=== PATIENT | female | born 1995 ===

== ENCOUNTER → 2021-05-20 11:07 | Outpatient (REF) | payer MEDICAID, SELFPAY ==
--- NOTE | ~2021-05-20 | XR_ITS ---
EXAMINATION: XR CHEST CLINICAL INFORMATION: Preprocedural cardiovascular exam COMPARISON: None TECHNIQUE: 2 views of the chest were obtained. FINDINGS: Lungs are clear. No focal consolidation or mass. Normal pulmonary vascularity. No pleural effusion or pneumothorax. Normal heart size. No acute osseous abnormality. XR/XR chest 2V IMPRESSION: Clear lungs.
--- NOTE | 2021-05-20 11:52 | ECG_ITS ---
Test Reason : PRE OP Blood Pressure : / mmHG Vent. Rate : 055 BPM Atrial Rate : 055 BPM P-R Int : 146 ms QRS Dur : 086 ms QT Int : 406 ms P-R-T Axes : 038 042 024 degrees QTc Int : 388 ms Sinus bradycardia Otherwise normal ECG When compared with ECG of 24-JUL-2018 10:00, No significant change was found Referred By: Betty Rowley Electronically Signed By:DEEDEE PHELAN MD
== END ==
LOC: HO.CARD 11:07
PROVIDERS: PCP Family Medicine; Referring Provider Family Medicine; Visit Provider Family Medicine
DX: Z01.810 Encounter for preprocedural cardiovascular examination (principal)
CPT/HCPCS: 71046; 93005

== ENCOUNTER 2022-06-16 10:54 | Outpatient (REF) | payer MEDICAID, SELFPAY ==
--- NOTE | ~2022-06-16 | US_ITS ---
EXAMINATION: US VENOUS ULTRASOUND WITH DOPPLER LOWER EXTREMITY, LEFT CLINICAL INFORMATION: Left lower extremity edema and pain. COMPARISON: None TECHNIQUE: Ultrasound of the deep veins is performed from the hip to the calf with compression sonography and color and pulse Doppler assessment. Spectral analysis with color-flow imaging is performed. FINDINGS: There is normal venous compression and respiratory variation and augmented flow. The visualized common femoral vein, superficial femoral vein, profunda femoral vein, popliteal vein, and the trifurcation region shows no evidence of deep venous thrombosis. There is no significant popliteal fossa cyst. If the patient's symptoms persist, followup ultrasound in 5 days 7 days might be of value to exclude proximal propagation from a non-visualized calf vein. US/US venous duplex LE IMPRESSION: No DVT demonstrated in the left lower extremity.
== END 2022-06-16 10:55 | disposition home or self-care (01) ==
LOC: HO.US 10:54
PROVIDERS: Visit Provider Emergency Medicine
DX: M79.662 Pain in left lower leg (principal)
CPT/HCPCS: 93971

== ENCOUNTER 2023-08-09 08:15 | Emergency (ER) | payer MEDICAID, SELFPAY ==
--- NOTE | ~2023-08-09 | US_ITS ---
EXAMINATION: US OBSTETRICAL ULTRASOUND CLINICAL INFORMATION: Lower abdominal pain in a patient was a positive test COMPARISON: None available. LMP: 07/08/2023. Gestational age by maternal dates is 5 weeks 3 days. Estimated date of delivery by maternal dates is 07/08/2024. TECHNIQUE: Transabdominal and transvaginal pelvic ultrasound FINDINGS: There is gestational sac identified in the uterine fundus measured 0.34 x 0.6 x 0.28 cm with the mean sac diameter 0.39 cm, corresponding to 4 weeks 6 days of gestation. No pole or yolk sac identified on the current study. MATERNAL ADNEXA: The right maternal ovary measures 3.4 x 2.0 x 2.4 cm corpus luteum cyst measured 2.1 x 1.6 x 1.7 cm The left maternal ovary measures 2.9 x 1.4 x 1.2 cm There is no significant maternal adnexal mass. There is small amount of fluid in cul-de-sac.. US/US OB <= 14 weeks fetus IMPRESSION: 1. Single intrauterine gestation with ultrasound gestational age of 4 weeks 6 days +/- 4 days based on gestational sac measurements on. There is mild pelvic ascites. Correlate with hCG level and follow-up by ultrasound based on the clinical impression
[2023-08-09 08:17] VITALS: BP 115/69; PULSE 78; RESP 18; TEMP 36.5; O2SAT 100; BMI 19.9
[2023-08-09 08:53] LABS: MANUAL DIFF FLAG NO
[2023-08-09 08:55] LABS: UPreg QC Valid YES; Urine Pregnancy POSITIVE (NEGATIVE)
[2023-08-09 08:56] LABS: Appearance Urine Clear; Color Urine Yellow; Glucose Urine UA Negative (Negative); Leukocyte Esterase Urine Negative (Negative); Nitrite Urine Negative (Negative); PH 5.5 (5.0-9.0); Specific Gravity - Urine 1.025 (1.005-1.025); Urine Blood Negative (Negative); Urine Ketones Negative (Negative); Urine Protein Negative (Neg-Trace)
[2023-08-09 08:57] LABS: Basophils Percent Auto 0.3 % (0-2); Eosinophils Absolute Auto 0.1 X10*3/uL (0.0-0.4); Eosinophils Percent Auto 1.1 % (0-4); Hematocrit 39.5 % (37.0-47.0); Hemoglobin 13.1 g/dl (12.0-16.0); Imm Gran Abs Auto 0.01 X10*3/uL (0.00-0.03); Imm Gran Pct Auto 0.1 % (0.0-0.4); Lymphocytes Absolute Auto 1.4 X10*3/uL (1.2-4.9); Mean Corpuscular HGB Conc 33.2 g/dl (31.0-35.0); Mean Corpuscular Hemoglobin 26.8 pg (27.0-33.0); Mean Corpuscular Volume 80.8 fL (80.0-98.0); Mean Platelet Volume 11.4 fL (9.4-12.3); Monocytes Absolute Auto 0.6 X10*3/uL (0.1-1.2); Monocytes Percent Auto 7.2 % (2-11); Neutrophils Absolute Auto 5.8 x10*3/uL (2.0-8.3); Neutrophils Percent Auto 73.3 % (45-73); Platelet Count 217 X10*3/uL (160-400); Red Blood Count 4.89 X10*6/uL (4.20-5.50); Red Cell Distribution Width 12.9 % (11.0-16.0); White Blood Count 7.9 X10*3/uL (4.8-10.8)
[2023-08-09 09:07] VITALS: BP 119/76; PULSE 76; RESP 16; TEMP 36.8; O2SAT 100
--- NOTE | 2023-08-09 09:09 | ED_ITS ---
HPI - Abdominal Pain General Chief Complaint: Abdominal Pain Stated Complaint: Abd pain Time Seen by Provider: 08/09/23 09:08 Source: patient, RN notes reviewed and old records reviewed Mode of arrival: ambulatory History of Present Illness HPI narrative: 28-year-old female , Senegalese-speaking, presenting to the ED complaining of LLQ/ suprapubic abdominal pain and low back pain x4 days. Reports pain worsens ambulation and palpation. LMP /. denies fever/ chills, nausea/ vomiting, flank pain, dysuria/ hematuria, vaginal bleeding /discharge MD elicited complaint: abdominal pain Related Data Allergies Allergy/AdvReac Type Severity Reaction Status Date / Time No Known Allergies Allergy Verified 08/09/23 08:20 Review of Systems Review of Systems Constitutional: No Fever, No Chills, No Night Sweats, No Fatigue, No Malaise ENT/Mouth: No Ear Pain, No Nasal Congestion, No sore throat, No Rhinorrhea, No Swallowing Difficulty Eyes: No Eye Pain, No Swelling, No Redness, No Vision Changes Cardiovascular: No Chest Pain, No SOB, o Palpitations Respiratory: No Cough, No Sputum, No Dyspnea Gastrointestinal: No Nausea, No Vomiting, No Diarrhea, No Constipation, +Abdominal pain Genitourinary: No irregular bleeding, No Dysuria, No Urinary Frequency, No Hematuria, No Urinary Incontinence/retention, No Flank Pain Musculoskeletal: +low back pain, No Myalgias, No Joint Swelling Skin: No Skin Lesions, No rash Neuro: No Weakness, No Numbness, No Paresthesias, No Loss of Consciousness, No Dizziness, No Headache Yes all other systems are reviewed and are negative Constitutional: Reports as per [facility] Past Medical History Attestation statement: The following information was validated with the patient. Source: old records reviewed Social History Social History Alcohol intake: never Smoked in Last 30 Days: No Use of substances other than those prescribed or required for medical reasons: No Advance Directives: No Patient : Yes Physical Exam ED Vital Signs: Vital Signs - 24 hr 08/09/23 08:17 08/09/23 09:07 08/09/23 11:12 Temperature 97.7 F 98.2 F 98.6 F Pulse Rate 78 76 68 Respiratory Rate 18 16 15 Blood Pressure 115/69 119/76 104/69 Pulse Oximetry 100 100 99 Oxygen Delivery Method Room Air Room Air Room Air BMI result Body Mass Index 19.9 Const General: cooperative, healthy appearing and no acute distress Orientation/consciousness: patient oriented x3 Limitations: no limitations HENMT Head: Yes normal to inspection and Yes atraumatic Ears: hearing grossly normal bilaterally General nose exam: Normal external nose present Face and sinus: Yes normal facial exam Eyes General: appearance normal, both eyes and all related structures EOM: EOMs intact bilaterally Neck Neck: Yes normal visual inspection and Yes no meningeal signs Resp Effort & Inspection: normal respiratory effort and no respiratory distress Cardio Rate: regular rate Heart sounds: S1 normal heart sound present and S2 normal heart sound present GI Inspection: Yes normal to inspection Palpation (GI): Soft to palpation, Tenderness to palpation present (GI) suprapubicly (> Left), no guarding and not rigid General: Yes no CVA tenderness Back/Spine/Pelvis Other: No midline cervical/thoracic/lumbar spinous tenderness/step-off or deformity. + mild left lower lumbar MSK ttp Back: no CVA tenderness Skin Rashes: no rashes Wounds: no wounds Neuro General: patient oriented x3, tone normal and no meningeal signs Cranial nerves: Yes CN's II-XII intact bilaterally Gait exam (Neuro): Normal gait present Extrem General: Yes normal to inspection Course Course Course Narrative: -919-- urine positive > additional labs including beta hCG added, will obtain pelvic ultrasound - no leukocytosis - HCG 2856 c/w +/-5 weeks 1304--US OB <= 14 weeks fetus IMPRESSION: 1. Single intrauterine gestation with ultrasound gestational age of 4 weeks 6 days +/- 4 days based on gestational sac measurements on. There is mild pelvic ascites. Correlate with hCG level and follow-up by ultrasound based on the clinical impression Results discussed with patient including worrisome signs and symptoms and strict return precautions including increasing/ unremitting pain, vaginal bleeding / discharge, persistent nausea/vomiting, and when to return to the emergency department. They verbalized understanding and feel safe for discharge at this time. Medical Decision Making Medical Decision Making [facility] Narrative: 28-year-old female , [place]egalese-speaking, presenting to the ED complaining of LLQ/ suprapubic abdominal pain and low back pain x4 days. on exam vital signs stable, NAD, nontoxic appearing, abdomen soft with suprapubic > left and mild left lower lumbar MSK tenderness, no rebound or guarding. Left hip nontender with full range of motion intact. No CVAT. Concern for UTI vs /ectopic vs ovarian torsion vs MSK pain/strain. Renal stone / pyelo on differential however lower. Lower suspicion for diverticulitis/appendicitis plan: Labs, UA, , imaging, re-evaluation Please refer to course for remaining clinical decision making, interpretation of labs/imaging results, and discussions with consultants and/or family members. Differential Diagnosis Differential Diagnoses: The differential diagnosis associated with the presentation includes As above Admission/Observation Consideration of admission/observation: Escalation of care including admission/observation considered Lab Data MDM Lab Attestation statement: I reviewed the patient's lab results. 08/09/23 08:46 08/09/23 08:46 Labs: Lab Results 08/09/23 Range/Units 08:46 WBC 7.9 (4.8-10.8) X10*3/uL RBC 4.89 (4.20-5.50) X10*6/uL Hgb 13.1 (12.0-16.0) g/dl Hct 39.5 (37.0-47.0) % MCV 80.8 (80.0-98.0) fL MCH 26.8 L (27.0-33.0) pg MCHC 33.2 (31.0-35.0) g/dl RDW 12.9 (11.0-16.0) % Plt Count 217 (160-400) X10*3/uL MPV 11.4 (9.4-12.3) fL Immature Gran % (Auto) 0.1 (0.0-0.4) % Neut % (Auto) 73.3 H (45-73) % Lymph % (Auto) 18.0 L (20-40) % [place] % (Auto) 7.2 (2-11) % Eos % (Auto) 1.1 (0-4) % Baso % (Auto) 0.3 (0-2) % Lymph # (Auto) 1.4 (1.2-4.9) X10*3/uL [place] # (Auto) 0.6 (0.1-1.2) X10*3/uL Eos # (Auto) 0.1 (0.0-0.4) X10*3/uL Baso # (Auto) 0.0 (0.0-0.2) X10*3/uL Abs Immat Gran (auto) 0.01 (0.00-0.03) X10*3/uL Absolute Neuts (auto) 5.8 (2.0-8.3) x10*3/uL Absolute Nucleated RBC 0.000 (0.0-0.012) X10*3/uL Nucleated RBC % (auto) 0.0 (0.0-0.2) /100WBC Sodium 137 (135-145) mmol/L Potassium 3.7 (3.3-5.1) mmol/L Chloride 109 H (96-108) mmol/L Carbon Dioxide 22 (22-29) mmol/L Anion Gap 10 L (12-20) BUN 10 (9-16) mg/dL Creatinine 0.91 (0.5-1.4) mg/dL Estim Creat Clear Calc 76.4 Estimated GFR > 60 Random Glucose 76 (60-115) mg/dL Calcium 9.3 (8.4-10.2) mg/dL Magnesium 1.9 (1.6-2.6) mg/dL Total Bilirubin 0.5 (0.0-1.0) mg/dL Direct Bilirubin 0.2 (0.0-0.5) mg/dL AST 14 (5-31) U/L ALT 5 (0-31) U/L Alkaline Phosphatase 43 (39-117) U/L Total Protein 7.8 (6.5-8.0) g/dL Albumin 4.1 (3.5-5.0) g/dL Lipase 23 (8-78) U/L Beta HCG, Quant 2856 mIU/mL Urine Color Yellow Urine Appearance Clear Urine pH 5.5 (5.0-9.0) Ur Specific [place] 1.025 (1.005-1.025) Urine Protein Negative (Neg-Trace) mg/dL Urine Glucose (UA) Negative (Negative) mg/dL Urine Ketones Negative (Negative) mg/dL Urine Blood Negative (Negative) Urine Nitrite Negative (Negative) Ur Leukocyte Esterase Negative (Negative) Urine Test POSITIVE H (NEGATIVE) Radiology Impression Discussion of test interpretation with radiology: I have reviewed the radiologist's reading. External Record Review External record reviewed: Inpatient record, Office record, Outpatient record, Prior outpatient labs, Prior outpatient radiology, Primary care record and Outside ED record Tests considered The following testing was considered but not selected: As above Prescription Management I considered prescription management with: Pain Medication Discharge Plan Discharge Clinical Impression: Patient Disposition: Home, Self-Care
[2023-08-09 09:15] LABS: Anion Gap 10 (12-20); Blood Urea Nitrogen 10 mg/dL (9-16); Calcium 9.3 mg/dL (8.4-10.2); Carbon Dioxide 22 mmol/L (22-29); Chloride 109 mmol/L (96-108); Creatinine Clr Calc Pharmacy 76.4; Estimated Glomerular Filt Rate > 60; Glucose Random 76 mg/dL (60-115); Potassium 3.7 mmol/L (3.3-5.1); Sodium 137 mmol/L (135-145)
--- NOTE | 2023-08-09 09:22 | PC.NURSE ---
a&ox3, vss. pt comes in today d/t LLQ pain that radiates to left flank area. pt states that symptoms began 4 days ago. provider and ethanol operator bedside with patient notifying pt that blood work displays that she is currently . pt verbalizes that she was unaware. pt denies any urinary symptoms but states that she has had some nausea recently and had chills last night. abdomen tender upon palpation. normoactive bs noted upon auscultation. pt denies fever and is currently afebrile [place]. resting comfortably in no apparent distress. respirations even and unlabored. call vigil placed within reach.
[2023-08-09 09:47] LABS: Alanine Aminotransferase 5 U/L (0-31); Albumin Level 4.1 g/dL (3.5-5.0); Alkaline Phosphatase 43 U/L (39-117); Aspartate Amino Transferase 14 U/L (5-31); Bilirubin Direct 0.2 mg/dL (0.0-0.5); Bilirubin Total 0.5 mg/dL (0.0-1.0); Lipase 23 U/L (8-78); Magnesium 1.9 mg/dL (1.6-2.6); Total Protein 7.8 g/dL (6.5-8.0)
[2023-08-09 09:51] LABS: HCG Quantitative 2856 mIU/mL
[2023-08-09 11:12] VITALS: BP 104/69; PULSE 68; RESP 15; TEMP 37; O2SAT 99
== END 2023-08-09 13:23 | disposition home or self-care (01) ==
PROVIDERS: Physician Assistant; Emergency Provider Emergency Medicine; PCP Family Medicine
DX: O26.91 Pregnancy related conditions, unspecified, first trimester (principal); Z79.899 Other long term (current) drug therapy
CPT/HCPCS: 36415; 76801; 80048; 80076; 81003; 81025; 83690; 83735; 84702; 85025; 99284

== ENCOUNTER 2023-08-19 07:57 | Emergency (ER) | payer MEDICAID, SELFPAY ==
[2023-08-19 07:59] VITALS: BP 114/75; PULSE 83; RESP 16; TEMP 36.3; O2SAT 100; BMI 20.7
--- NOTE | 2023-08-19 08:11 | ED_ITS ---
HPI - General Adult General Chief complaint: Nausea/Vomiting/Diarrhea Stated complaint: nausea Time Seen by Provider: 08/19/23 08:09 Source: patient Mode of arrival: ambulatory Limitations: no limitations History of Present Illness HPI narrative: Patient is a 28-year-old female currently a approximately 6 weeks , LMP 07/02/2023 presenting to the emergency department with complaint of nausea and vomiting since yesterday. She also complains of epigastric abdominal pain. She denies any diarrhea or constipation. Reports that she has had vomiting with all p.o. intake. Sees [facility] [employer]. Has had an OB ultrasound confirming intrauterine . Denies any cramping or vaginal bleeding. Denies fevers. MD complaint: nausea and vomiting Onset (ago): day(s) Location: abdomen Radiation: non-radiation Severity: mild Quality: burning Pain Consistency: constant Relieving factors: none Exacerbating factors: other (vomiting) Associated symptoms: denies other symptoms Treatments prior to arrival: none Related Data Previous Rx's Medication Instructions Recorded ondansetron 4 mg disintegrating 4 mg PO Q8H PRN nausea and 08/19/23 tablet vomiting #10 tabs Allergies Allergy/AdvReac Type Severity Reaction Status Date / Time No Known Allergies Allergy Verified 08/09/23 08:20 Review of Systems 2 Review of Systems: As per HPI. Yes all other systems are reviewed and are negative Constitutional: Constitutional: Reports as per [facility] Social History Social History Alcohol intake: never Smoked in Last 30 Days: No Use of substances other than those prescribed or required for medical reasons: No Advance Directives: No Advance Directives Information Provided: No Physical Exam ED Vital Signs: Vital Signs - 24 hr 08/19/23 07:59 08/19/23 10:04 Temperature 97.4 F Pulse Rate 83 69 Respiratory Rate 16 18 Blood Pressure 114/75 97/61 Pulse Oximetry 100 100 Oxygen Delivery Method Room Air Room Air BMI result Body Mass Index 20.7 Vital signs have been reviewed and appear to be correct. Blood pressure normal. Heart rate normal. Respiratory rate normal. Temperature normal. Oxygen saturation normal. Const General: cooperative, healthy appearing and no acute distress Orientation/consciousness: oriented to person, oriented to place, oriented to time and patient oriented x3 Limitations: no limitations HENMT Head: Yes normocephalic and Yes atraumatic Ears: external ears normal General nose exam: Normal external nose present Face and sinus: Yes face symmetric Mouth: oropharynx normal and moist mucous membranes Throat: Yes uvula midline Eyes Pupils: Equal, round and reactive pupils present Neck Neck: Yes normal visual inspection and Yes supple Resp Effort & Inspection: normal respiratory effort and able to speak in complete sentences Auscultation: clear to auscultation bilaterally Cardio Rate: regular rate Rhythm: regular rhythm Heart sounds: S1 normal heart sound present and S2 normal heart sound present GI Inspection: Yes normal to inspection Palpation (GI): Soft to palpation and Tenderness to palpation present (GI) (mild epigastric tenderness) in the epigastrum Auscultation: normoactive bowel sounds General: Yes no CVA tenderness Back/Spine/Pelvis Back: no CVA tenderness Skin General skin exam: elasticity normal and turgor normal Neuro General: oriented to person, oriented to place, oriented to time, patient oriented x3, moves all extremities, no focal motor deficits and CN's II-XI intact bilaterally Cranial nerves: Yes Equal, round and reactive pupils present Cognition (Neuro): normal cognition Extrem General: Yes full ROM, Yes no pedal edema and Yes no calf tenderness Psych Mental Status: mental status grossly normal Affect: normal affect Thought process: Normal thought process present Medications Administered Discontinued Medications Generic Name Dose Route Start Last Admin Trade Name Freq PRN Reason Stop Dose Admin Diphenhydramine HCl 25 mg 08/19/23 09:58 08/19/23 10:07 Diphenhydramine Hcl 50 Mg/Ml Vial IVPUSH 08/19/23 09:59 25 mg ONCE ONE Administration Sodium Chloride 1,000 mls @ 999 mls/hr 08/19/23 08:30 08/19/23 10:06 Ns IV 08/19/23 09:30 Infused .Q1H1M ADRIANA Infusion Sodium Chloride 500 mls @ 999 mls/hr 08/19/23 10:00 08/19/23 11:21 Ns IV 08/19/23 10:30 Infused .Q31M ADRIANA Infusion Metoclopramide HCl 10 mg 08/19/23 09:50 08/19/23 10:06 Metoclopramide Hcl 10 Mg/2 Ml Vial IVPUSH 08/19/23 09:51 10 mg ONCE ONE Administration Ondansetron HCl 4 mg 08/19/23 08:16 08/19/23 08:28 Ondansetron Hcl 4 Mg/2 Ml Vial IVPUSH 08/19/23 08:17 4 mg ONCE ONE Administration Medical Decision Making Medical Decision Making [facility] Narrative: Patient is a 28-year-old female currently a approximately 6 weeks , LMP 07/02/2023 presenting to the emergency department with complaint of nausea and vomiting since yesterday. On exam patient is awake, A+Ox3, VS WNL, afebrile, normal neurological exam without focal deficits, physical exam findings as above. No vomiting witnessed during assessment, however, patient noted to be spitting into an emesis bag. Given reported symptoms and physical exam findings, initial differential includes nausea and vomiting of , hyperemesis gravidarum, electrolye abnormality. Will check UA, order IV fluids and zofran. Labs notable for mild leukocytosis consistent with prior elevations, no anemia, no electrolyte abnormalities. UA not yet resulted. Patient complains of ongoing nausea and vomiting despite IV fluids and Zofran. Will order metoclopramide and additional fluids. Patient unable to provide urine specimen while in the ED. Reports that symptoms have significantly improved after receiving metoclopramide and diphenhydramine. Has been able to tolerate fluids p.o.. Patient feels comfortable with discharge home and I feel patient is stable for discharge at this time. Will sign prescription for Zofran to pharmacy. Return precautions discussed at bedside. Instructed patient to contact OBGYN for follow-up regarding her symptoms and ED visit today. Patient verbalized understanding of and agreement with plan. Differential Diagnosis Differential Diagnoses: The differential diagnosis associated with the presentation includes As per [facility]. Admission/Observation Consideration of admission/observation: Escalation of care including admission/observation considered Lab Data [facility] Lab Attestation statement: I reviewed the patient's lab results. As per [facility] 08/19/23 08:20 08/19/23 08:20 Labs: Lab Results 08/19/23 Range/Units 08:20 WBC 12.1 H (4.8-10.8) X10*3/uL RBC 4.62 (4.20-5.50) X10*6/uL Hgb 12.4 (12.0-16.0) g/dl Hct 37.1 (37.0-47.0) % MCV 80.3 (80.0-98.0) fL MCH 26.8 L (27.0-33.0) pg MCHC 33.4 (31.0-35.0) g/dl RDW 13.0 (11.0-16.0) % Plt Count 219 (160-400) X10*3/uL MPV 11.5 (9.4-12.3) fL Immature Gran % (Auto) 0.4 (0.0-0.4) % Neut % (Auto) 85.6 H (45-73) % Lymph % (Auto) 9.5 L (20-40) % [place] % (Auto) 4.2 (2-11) % Eos % (Auto) 0.2 (0-4) % Baso % (Auto) 0.1 (0-2) % Lymph # (Auto) 1.2 (1.2-4.9) X10*3/uL [place] # (Auto) 0.5 (0.1-1.2) X10*3/uL Eos # (Auto) 0.0 (0.0-0.4) X10*3/uL Baso # (Auto) 0.0 (0.0-0.2) X10*3/uL Abs Immat Gran (auto) 0.05 H (0.00-0.03) X10*3/uL Absolute Neuts (auto) 10.4 H (2.0-8.3) x10*3/uL Absolute Nucleated RBC 0.000 (0.0-0.012) X10*3/uL Nucleated RBC % (auto) 0.0 (0.0-0.2) /100WBC Sodium 139 (135-145) mmol/L Potassium 3.5 (3.3-5.1) mmol/L Chloride 108 (96-108) mmol/L Carbon Dioxide 23 (22-29) mmol/L Anion Gap 12 (12-20) BUN 10 (9-16) mg/dL Creatinine 0.77 (0.5-1.4) mg/dL Estim Creat Clear Calc 93.8 Estimated GFR > 60 Random Glucose 86 (60-115) mg/dL Calcium 9.4 (8.4-10.2) mg/dL Total Bilirubin 0.7 (0.0-1.0) mg/dL AST 14 (5-31) U/L ALT 6 (0-31) U/L Alkaline Phosphatase 40 (39-117) U/L Total Protein 7.8 (6.5-8.0) g/dL Albumin 4.1 (3.5-5.0) g/dL Beta HCG, Quant 92162 mIU/mL External Record Review External record reviewed: Inpatient record, Office record and Outpatient record Prescription Management I considered prescription management with: Other Discharge Plan Discharge Clinical Impression: Nausea and vomiting during Patient Disposition: Home, Self-Care Instructions: Nausea and Vomiting in (ED) Additional Instructions: You were evaluated in the emergency department today for epigastric pain, nausea, and vomiting which is most likely due to . Your symptoms improved with medication in the ED. you are being prescribed ondansetron which you may use up to every 8 hours as needed for nausea. Please follow up with your [employer] within two days. Return to the emergency department if you experience shortness of breath, worsening or uncontrolled abdominal pain, vaginal bleeding, chest pain, light headedness, fainting, persistent nausea and vomiting, bloody vomit or stools, black, tarry stools, or any other concerning symptoms. Prescriptions: New ondansetron 4 mg tablet,disintegrating 4 mg PO Q8H PRN (Reason: nausea and vomiting) Qty: 10 0RF
--- NOTE | 2023-08-19 08:15 | PC.NURSE ---
pt a&ox3. respirations even and unlabored. pt reports nausea and vomiting since yesterday at 5am, more than 15 times. pt denies blood in vomit. denies pain. pt reports being 6 weeks with her last period being july 02. pt abdomen soft non tender to touch with active bowel sounds in all 4 quadrants. pt denies chest pain and SOB. provider at bedside discussing pt care.
[2023-08-19] MEDS: 0.9 % Sodium Chloride 1,000 ML 999 ML IV (08:22)
[2023-08-19 08:27] LABS: MANUAL DIFF FLAG NO
[2023-08-19] MEDS: ondansetron HCL 4 MG/2 ML VIAL IVPUSH (08:28)
[2023-08-19 08:29] LABS: Basophils Percent Auto 0.1 % (0-2); Eosinophils Percent Auto 0.2 % (0-4); Hematocrit 37.1 % (37.0-47.0); Hemoglobin 12.4 g/dl (12.0-16.0); Imm Gran Abs Auto 0.05 X10*3/uL (0.00-0.03); Imm Gran Pct Auto 0.4 % (0.0-0.4); Lymphocytes Absolute Auto 1.2 X10*3/uL (1.2-4.9); Lymphocytes Percent Auto 9.5 % (20-40); Mean Corpuscular HGB Conc 33.4 g/dl (31.0-35.0); Mean Corpuscular Hemoglobin 26.8 pg (27.0-33.0); Mean Corpuscular Volume 80.3 fL (80.0-98.0); Mean Platelet Volume 11.5 fL (9.4-12.3); Monocytes Absolute Auto 0.5 X10*3/uL (0.1-1.2); Monocytes Percent Auto 4.2 % (2-11); Neutrophils Absolute Auto 10.4 x10*3/uL (2.0-8.3); Neutrophils Percent Auto 85.6 % (45-73); Platelet Count 219 X10*3/uL (160-400); Red Blood Count 4.62 X10*6/uL (4.20-5.50); White Blood Count 12.1 X10*3/uL (4.8-10.8)
[2023-08-19 08:49] LABS: Alanine Aminotransferase 6 U/L (0-31); Albumin Level 4.1 g/dL (3.5-5.0); Alkaline Phosphatase 40 U/L (39-117); Anion Gap 12 (12-20); Aspartate Amino Transferase 14 U/L (5-31); Bilirubin Total 0.7 mg/dL (0.0-1.0); Blood Urea Nitrogen 10 mg/dL (9-16); Calcium 9.4 mg/dL (8.4-10.2); Carbon Dioxide 23 mmol/L (22-29); Chloride 108 mmol/L (96-108); Creatinine Clr Calc Pharmacy 93.8; Estimated Glomerular Filt Rate > 60; Glucose Random 86 mg/dL (60-115); Potassium 3.5 mmol/L (3.3-5.1); Sodium 139 mmol/L (135-145); Total Protein 7.8 g/dL (6.5-8.0)
[2023-08-19 10:04] VITALS: BP 97/61; PULSE 69; RESP 18; O2SAT 100
[2023-08-19] MEDS: 0.9 % Sodium Chloride 500 ML 999 ML IV (10:06)
[2023-08-19] MEDS: Metoclopramide HCl 10 MG/2 ML VIAL IVPUSH (10:06)
[2023-08-19] MEDS: diphenhydrAMINE HCL 50 MG/ML VIAL 25 MG IVPUSH (10:07)
--- NOTE | 2023-08-19 10:10 | PC.NURSE ---
pt reports nausea, provider aware. pt medicated per mar. vss.
[2023-08-19 13:09] VITALS: BP 96/50; PULSE 75; RESP 18; O2SAT 99
--- NOTE | 2023-08-19 13:10 | PC.NURSE ---
pt bp 96/50 upon discharge. Cecilia MUELLER aware.
== END 2023-08-19 13:17 | disposition home or self-care (01) ==
PROVIDERS: Registered Nurse Emergency; Emergency Provider Emergency Medicine; PCP Family Medicine
DX: O21.9 Vomiting of pregnancy, unspecified (principal); Z3A.01 Less than 8 weeks gestation of pregnancy
CPT/HCPCS: 36415; 80053; 84702; 85025; 96361; 96374; 96375; 99284; J1200; J2405; J2765

== ENCOUNTER 2023-08-27 12:25 | Emergency (ER) | payer MEDICAID, SELFPAY ==
[2023-08-27 13:09] VITALS: BP 148/86; PULSE 76; RESP 16; TEMP 37.2; O2SAT 98; BMI 19.7
--- NOTE | 2023-08-27 13:09 | ED.NAVMDI ---
HPI - Nausea/Vomiting/Diarrhea General Chief complaint: Nausea/Vomiting/Diarrhea Stated complaint: Vomiting Pain Time Seen by Provider: 08/27/23 15:38 Related Data Previous Rx's Medication Instructions Recorded ondansetron 4 mg disintegrating 4 mg PO Q8H PRN nausea and 08/19/23 tablet vomiting #10 tabs Allergies Allergy/AdvReac Type Severity Reaction Status Date / Time No Known Allergies Allergy Verified 08/09/23 08:20 [facility] Social History Social History Alcohol intake: never Advance Directives: No Advance Directives Information Provided: No Physical Exam Vital Signs: Vital Signs: Last Vital Signs Temp 99 F 08/27/23 13:09 Pulse 76 08/27/23 13:09 Resp 16 08/27/23 13:09 BP 148/86 H 08/27/23 13:09 Pulse Ox 98 08/27/23 13:09 O2 Del Method Room Air 08/27/23 13:09 BMI result Body Mass Index 19.7 Course Course Course Narrative: currently approximately 8 weeks , LMP 07/02/2023 followed by [facility], presenting to the emergency department with complaint of nausea and vomiting. Has had persistent nausea and vomiting he during this , but significantly worsening since yesterday. She has been seen here in the past and received a prescription for Zofran which she states did not relieve her nausea. She has an appointment to see her OB provider 09/03/2023 . Denies vaginal bleeding or discharge. Denies dysuria. When asked about pain she endorses lower ABD pain and left calf pain without swelling. Plan: labs, U/A, US LLE Medical Decision Making Lab Data 08/27/23 14:27 08/27/23 14:27 Labs: Lab Results 08/27/23 Range/Units 14:27 WBC 13.4 H (4.8-10.8) X10*3/uL RBC 5.06 (4.20-5.50) X10*6/uL Hgb 13.5 (12.0-16.0) g/dl Hct 40.8 (37.0-47.0) % MCV 80.6 (80.0-98.0) fL MCH 26.7 L (27.0-33.0) pg MCHC 33.1 (31.0-35.0) g/dl RDW 13.1 (11.0-16.0) % Plt Count 232 (160-400) X10*3/uL MPV 12.0 (9.4-12.3) fL Immature Gran % (Auto) 0.4 (0.0-0.4) % Neut % (Auto) 85.3 H (45-73) % Lymph % (Auto) 9.5 L (20-40) % [place] % (Auto) 4.5 (2-11) % Eos % (Auto) 0.1 (0-4) % Baso % (Auto) 0.2 (0-2) % Lymph # (Auto) 1.3 (1.2-4.9) X10*3/uL [place] # (Auto) 0.6 (0.1-1.2) X10*3/uL Eos # (Auto) 0.0 (0.0-0.4) X10*3/uL Baso # (Auto) 0.0 (0.0-0.2) X10*3/uL Abs Immat Gran (auto) 0.05 H (0.00-0.03) X10*3/uL Absolute Neuts (auto) 11.5 H (2.0-8.3) x10*3/uL Absolute Nucleated RBC 0.000 (0.0-0.012) X10*3/uL Nucleated RBC % (auto) 0.0 (0.0-0.2) /100WBC PT 12.5 (11.1-13.3) SEC INR 1.0 (0.9-1.1) Sodium 138 (135-145) mmol/L Potassium 4.3 D (3.3-5.1) mmol/L Chloride 104 (96-108) mmol/L Carbon Dioxide 22 (22-29) mmol/L Anion Gap 16 (12-20) BUN 11 (9-16) mg/dL Creatinine 0.76 (0.5-1.4) mg/dL Estim Creat Clear Calc 90.7 Estimated GFR > 60 Random Glucose 84 (60-115) mg/dL Calcium 9.9 (8.4-10.2) mg/dL Total Bilirubin 0.7 (0.0-1.0) mg/dL AST 15 (5-31) U/L ALT 9 (0-31) U/L Alkaline Phosphatase 39 (39-117) U/L Total Protein 8.3 H (6.5-8.0) g/dL Albumin 4.3 (3.5-5.0) g/dL Lipase 19 (8-78) U/L Beta HCG, Quant 447203 mIU/mL COVID-19 (PURNIMA) Negative (Negative) COVID-19 Clin Com See Note Discharge Plan Discharge Prescriptions: No Action ondansetron 4 mg tablet,disintegrating 4 mg PO Q8H PRN (Reason: nausea and vomiting) Qty: 10 0RF
--- NOTE | 2023-08-27 15:48 | ED.NAVMDI ---
HPI - Nausea/Vomiting/Diarrhea General Chief complaint: Nausea/Vomiting/Diarrhea Stated complaint: Vomiting Pain Time Seen by Provider: 08/27/23 15:38 Source: patient and family ( mother) Mode of arrival: ambulatory Limitations: no limitations History of Present Illness HPI Narrative: currently approximately 8 weeks , LMP 07/02/2023 followed by Buddy Miranda, presenting to the emergency department with complaint of nausea and vomiting. Has had persistent nausea and vomiting he during this , but significantly worsening since yesterday. She has been seen here in the past and received a prescription for Zofran which she states did not relieve her nausea. patient with history of hyperemesis gravidarum in previous pregnancies and mother also had a history during her . She has an appointment to see her OB provider 09/03/2023 . Denies vaginal bleeding or discharge. Denies dysuria. When asked about pain she endorses lower ABD pain and left calf pain without swelling. Related Data Previous Rx's Medication Instructions Recorded ondansetron 4 mg disintegrating 4 mg PO Q8H PRN nausea and 08/19/23 tablet vomiting #10 tabs metoclopramide HCl 10 mg tablet 10 mg PO Q6H PRN nausea and 08/27/23 (Reglan) vomiting #10 tabs Allergies Allergy/AdvReac Type Severity Reaction Status Date / Time No Known Allergies Allergy Verified 08/09/23 08:20 Review of Systems Review of Systems: All other systems are reviewed and are negative Constitutional: Reports as per HPI and Reports no additional constitutional complaints Eyes: Reports as per HPI and Reports no additional eye complaints Reports system reviewed and no additional complaints, except as documented Cardiovascular: Reports as per HPI and Reports no additional cardiovascular complaints Respiratory: Reports as per HPI and Reports no additional respiratory complaints Gastrointestinal: Reports as per HPI and Reports no additional gastrointestinal complaints Genitourinary: Reports no additional female genitourinary complaints Musculoskeletal: Reports no additional musculoskeletal complaints Skin/Breast: Reports system reviewed and no additional complaints, except as docu Psychiatric: Reports no additional psychiatric complaints Endocrine: Reports no additional endocrine complaints Hematologic/Lymphatic: Reports no additional hematologic/lymphatic complaints Allergic/Immunologic: Reports no additional allergic/immunologic complaints Reports system reviewed and no additional complaints, except as documented and Reports Abnormal speech present PMFSH Social History Social History Alcohol intake: never Smoked in Last 30 Days: No Use of substances other than those prescribed or required for medical reasons: No Advance Directives: No Advance Directives Information Provided: No Patient : Yes Physical Exam Vital Signs: Vital Signs: Last Vital Signs Temp 99 F 08/27/23 13:09 Pulse 77 08/27/23 18:09 Resp 16 08/27/23 18:09 BP 109/63 08/27/23 18:09 Pulse Ox 100 08/27/23 18:09 O2 Del Method Room Air 08/27/23 18:09 BMI result Body Mass Index 19.7 Vital signs have been reviewed and appear to be correct. Blood pressure elevated. Heart rate normal. Respiratory rate normal. Temperature normal. Oxygen saturation normal. Appearance: Alert. Oriented X3. No acute distress. Head: Normal external exam. Normocephalic. Atraumatic. No Marcial signs noted. No raccoon eyes noted Eyes: PERRLA. EOMI. Conjunctiva and sclera normal. Eyelids normal. ENT: TM's Normal. Pharynx normal. Uvula midline. Moist mucous membranes. No trismus noted. No drooling noted. No muffled voice noted. Neck: Normal inspection. Neck supple. FROM. No adenopathy. Thyroid Normal. No meningeal signs. No neck mass noted. CVS: Normal heart rate and rhythm. Heart sound normal. No murmurs noted. Pulses normal throughout. Respiratory: No respiratory distress. Painless inspiration. Breath sounds normal. No wheezes/rales/rhonchi noted. Chest nontender. No accessory muscle usage noted or decreased air movement noted. Abdomen: Soft and nontender. Bowel sounds normal in all 4 quadrants. No distention noted. No organomegaly noted. No visible injury noted. Back: No CVA tenderness. Full range of motion noted. Skin: Skin warm and dry. Normal skin color. Normal skin turgor. No rashes/lesions/lacerations noted. Extremities: No lower extremity edema. Extremities exhibit normal range of motion. Extremities nontender. Neuro: Oriented X 3. Cranial nerve exam: II-XII are grossly intact No motor deficit. No sensory deficit. Reflexes normal. Course Course Course Narrative: 8 weeks history of hyperemesis gravidarum in previous pregnancies came in with vomiting, leukocytosis reactionary to stress and vomiting. patient now feels better with no nausea or vomiting good appetite able to tolerate p.o. intake in the emergency department without nausea or vomiting, patient has an OB appointment next week will prescribe. No sonographic evidence of DVT in the left lower extremity. Reevaluation(s) Reevaluation #1: tolerated p.o. intake with no nausea or vomiting patient will be discharged on Reglan for controlling hyperemesis gravidarum. Time: 19:40 Medications Administered Discontinued Medications Generic Name Dose Route Start Last Admin Trade Name Freq PRN Reason Stop Dose Admin Sodium Chloride 1,000 mls @ 999 mls/hr 08/27/23 15:45 08/27/23 18:22 Ns IV 08/27/23 16:45 Infused .Q1H1M ADRIANA Infusion Sodium Chloride 1,000 mls @ 999 mls/hr 08/27/23 15:45 08/27/23 18:22 Ns IV 08/27/23 16:45 Infused .Q1H1M ADRIANA Infusion Metoclopramide HCl 10 mg 08/27/23 17:30 08/27/23 18:11 Metoclopramide Hcl 10 Mg/2 Ml Vial IVPUSH 08/27/23 17:31 10 mg ONCE ONE Administration Ondansetron HCl 4 mg 08/27/23 15:46 08/27/23 16:28 Ondansetron Hcl 4 Mg/2 Ml Vial IVPUSH 08/27/23 15:47 4 mg ONCE ONE Administration Medical Decision Making Differential Diagnosis Differential Diagnoses: The differential diagnosis associated with the presentation includes ( Hyperemesis gravidarum, dehydration, severe electrolyte abnormality, complicated early , UTI.) Admission/Observation Consideration of admission/observation: Escalation of care including admission/observation considered Lab Data MDM Lab Attestation statement: I reviewed the patient's lab results. 08/27/23 14:27 08/27/23 14:27 Labs: Lab Results 08/27/23 08/27/23 Range/Units 14:27 18:06 WBC 13.4 H (4.8-10.8) X10*3/uL RBC 5.06 (4.20-5.50) X10*6/uL Hgb 13.5 (12.0-16.0) g/dl Hct 40.8 (37.0-47.0) % MCV 80.6 (80.0-98.0) fL MCH 26.7 L (27.0-33.0) pg MCHC 33.1 (31.0-35.0) g/dl RDW 13.1 (11.0-16.0) % Plt Count 232 (160-400) X10*3/uL MPV 12.0 (9.4-12.3) fL Immature Gran % (Auto) 0.4 (0.0-0.4) % Neut % (Auto) 85.3 H (45-73) % Lymph % (Auto) 9.5 L (20-40) % [place] % (Auto) 4.5 (2-11) % Eos % (Auto) 0.1 (0-4) % Baso % (Auto) 0.2 (0-2) % Lymph # (Auto) 1.3 (1.2-4.9) X10*3/uL [place] # (Auto) 0.6 (0.1-1.2) X10*3/uL Eos # (Auto) 0.0 (0.0-0.4) X10*3/uL Baso # (Auto) 0.0 (0.0-0.2) X10*3/uL Abs Immat Gran (auto) 0.05 H (0.00-0.03) X10*3/uL Absolute Neuts (auto) 11.5 H (2.0-8.3) x10*3/uL Absolute Nucleated RBC 0.000 (0.0-0.012) X10*3/uL Nucleated RBC % (auto) 0.0 (0.0-0.2) /100WBC PT 12.5 (11.1-13.3) SEC INR 1.0 (0.9-1.1) Sodium 138 (135-145) mmol/L Potassium 4.3 D (3.3-5.1) mmol/L Chloride 104 (96-108) mmol/L Carbon Dioxide 22 (22-29) mmol/L Anion Gap 16 (12-20) BUN 11 (9-16) mg/dL Creatinine 0.76 (0.5-1.4) mg/dL Estim Creat Clear Calc 90.7 Estimated GFR > 60 Random Glucose 84 (60-115) mg/dL Calcium 9.9 (8.4-10.2) mg/dL Total Bilirubin 0.7 (0.0-1.0) mg/dL AST 15 (5-31) U/L ALT 9 (0-31) U/L Alkaline Phosphatase 39 (39-117) U/L Total Protein 8.3 H (6.5-8.0) g/dL Albumin 4.3 (3.5-5.0) g/dL Lipase 19 (8-78) U/L Beta HCG, Quant 142146 mIU/mL Urine Color Yellow Urine Appearance Clear Urine pH 6.0 (5.0-9.0) Ur Specific [place] >= 1.030 H (1.005-1.025) Urine Protein Trace (Neg-Trace) mg/dL Urine Glucose (UA) Negative (Negative) mg/dL Urine Ketones >=160 (Negative) mg/dL Urine Blood Negative (Negative) Urine Nitrite Negative (Negative) Ur Leukocyte Esterase Negative (Negative) COVID-19 ([facility]URNIMA) Negative (Negative) COVID-19 Clin Com See Note Independent Interpretation I performed an independent interpretation of an: Ultrasound ( left lower extremities: No DVT.) Radiology Impression Discussion of test interpretation with radiology: I have reviewed the radiologist's reading. Discharge Plan Discharge Clinical Impression: Hyperemesis gravidarum Patient Disposition: Home, Self-Care Instructions: Hyperemesis Gravidarum (ED) Prescriptions: New metoclopramide HCl [Reglan] 10 mg tablet 10 mg PO Q6H PRN (Reason: nausea and vomiting) Qty: 10 0RF No Action ondansetron 4 mg tablet,disintegrating 4 mg PO Q8H PRN (Reason: nausea and vomiting) Qty: 10 0RF Referrals: Tatyana Kovacs DO [Primary Care Provider] -
[2023-08-27 18:09] VITALS: BP 109/63; PULSE 77; RESP 16; O2SAT 100
[2023-08-27 20:29] VITALS: BP 107/67; PULSE 69; RESP 17; TEMP 37; O2SAT 99
== END 2023-08-27 20:30 | disposition home or self-care (01) ==
PROVIDERS: Emergency Provider Emergency Medicine; PCP Family Medicine
DX: O21.0 Mild hyperemesis gravidarum (principal); Z3A.08 8 weeks gestation of pregnancy; Z11.52 Encounter for screening for COVID-19
CPT/HCPCS: 80053; 81003; 83690; 84702; 85025; 85610; 87635; 93971; 96361; 96374; 96375; 99284; J2405; J2765

== ENCOUNTER 2023-08-29 14:16 | Emergency (ER) | payer MEDICAID, SELFPAY ==
[2023-08-29 14:17] VITALS: BP 116/69; PULSE 69; RESP 16; TEMP 36.6; O2SAT 100; BMI 20.2
--- NOTE | 2023-08-29 14:23 | ED.GENADULT ---
HPI - General Adult General Chief complaint: Nausea/Vomiting/Diarrhea Stated complaint: Vomiting blood Time Seen by Provider: 08/29/23 16:02 Source: patient, RN notes reviewed and old records reviewed Mode of arrival: ambulatory Limitations: no limitations History of Present Illness HPI narrative: 28-year-old female presents for evaluation of vomiting. Patient reports that she is approximately 8 weeks . She is followed by [facility]'s She has an appointment on 09/03/23 She has mild upper abdominal pain Patient states that vomiting she notice ?small specks of blood. ? Denies any lower abdominal pain, vaginal bleeding or discharge Related Data Previous Rx's Medication Instructions Recorded ondansetron 4 mg disintegrating 4 mg PO Q8H PRN nausea and 08/19/23 tablet vomiting #10 tabs metoclopramide HCl 10 mg tablet 10 mg PO Q6H PRN nausea and 08/27/23 (Reglan) vomiting #10 tabs aluminum-mag hydroxide-simethicone 10 ml PO QID PRN indigestion #300 08/29/23 200 mg-200 mg-20 mg/5 mL oral susp mL (Maalox Advanced) Allergies Allergy/AdvReac Type Severity Reaction Status Date / Time No Known Allergies Allergy Verified 08/09/23 08:20 Review of Systems Constitutional: Constitutional: Denies chills, Denies fever(s) and Denies weakness Cardiovascular: Cardiovascular: Denies chest pain and Denies dyspnea Respiratory: Respiratory: Denies cough and Denies dyspnea Gastrointestinal: Gastrointestinal: Reports abdominal pain, Reports nausea and Reports vomiting Comments: Small specks of bright red blood Genitourinary: Genitourinary: Denies abnormal vaginal bleeding and Denies vaginal discharge Musculoskeletal: Musculoskeletal: Denies back pain Neurologic: Denies weakness [facility] Social History Social History Alcohol intake: never Smoked in Last 30 Days: No Use of substances other than those prescribed or required for medical reasons: No Advance Directives: No Advance Directives Information Provided: No Patient : Yes Physical Exam ED Vital Signs: Vital Signs - 24 hr 08/29/23 14:17 08/29/23 15:40 08/29/23 18:00 Temperature 97.9 F 98.6 F 99.8 F Pulse Rate 69 65 71 Respiratory Rate 16 16 16 Blood Pressure 116/69 133/62 115/66 Pulse Oximetry 100 100 98 Oxygen Delivery Method Room Air Room Air Room Air 08/29/23 20:48 Temperature Pulse Rate 65 Respiratory Rate 16 Blood Pressure 105/61 Pulse Oximetry 99 Oxygen Delivery Method Room Air BMI result Body Mass Index 20.2 Const General: healthy appearing, comfortable, no acute distress, alert and awake Nutritional Appearance: well nourished Orientation/consciousness: patient oriented x3 HENMT Head: Yes normocephalic and Yes atraumatic Throat: Yes posterior oropharynx normal Eyes Eyelids: Yes eyelids normal Conjunctivae: conjunctivae normal Sclerae: sclerae normal Corneas: corneas normal Pupils: Equal, round and reactive pupils present EOM: EOMs intact bilaterally Neck Neck: Yes full ROM Resp Effort & Inspection: normal respiratory effort, able to speak in complete sentences and not labored Cardio Rate: regular rate Rhythm: regular rhythm GI Inspection: No distended Palpation (GI): Soft to palpation, not firm, nontender, no guarding and not rigid Skin General skin exam: no rashes or lesions noted and elasticity normal Neuro General: patient oriented x3 Cranial nerves: Yes Equal, round and reactive pupils present and Yes Bilaterally intact EOM present Cognition (Neuro): normal cognition Extrem Other: Moving all extremities well without any obvious deformities Course Course Course Narrative: RME: 28 yold female 2 months presents to the ED for vomitting, epigastric pain, and states slight vomitting with specs of blood. patient states no lower abdominal pain, vaginal bleeding, or vaginal disharge. Labs ordered. Reevaluation(s) Reevaluation #1: His urine is most consistent with contamination. There is no lower abdominal pain or complaints, will withhold treatment for UTI at this time pending culture. Patient reports that she is finally feeling better after GI cocktail, we will discharge her home with Maalox and she will follow-up with [facility] as planned. She was again given return precaution Time: 21:18 Medications Administered Discontinued Medications Generic Name Dose Route Start Last Admin Trade Name Freq PRN Reason Stop Dose Admin Al Hydroxide/Mg Hydroxide 30 ml 08/29/23 16:36 08/29/23 20:46 Magnesium Hydrox/Alum Hydrox 30 Ml Oral.Susp PO 08/29/23 16:37 30 ml ONCE ONE Administration Diphenhydramine HCl 25 mg 08/29/23 15:40 08/29/23 16:05 Diphenhydramine Hcl 50 Mg/Ml Vial IVPUSH 08/29/23 15:41 25 mg ONCE ONE Administration Sodium Chloride 1,000 mls @ 999 mls/hr 08/29/23 15:45 08/29/23 17:07 Ns IV 08/29/23 16:45 Infused .Q1H1M ADRIANA Infusion Lidocaine HCl 15 ml 08/29/23 16:36 08/29/23 20:46 Lidocaine Hcl Viscous 2 % 15 Ml Solution MUCOUS MEM 08/29/23 16:37 15 ml ONCE ONE Administration Metoclopramide HCl 10 mg 08/29/23 15:40 08/29/23 16:06 Metoclopramide Hcl 10 Mg/2 Ml Vial IVPUSH 08/29/23 15:41 10 mg ONCE ONE Administration Ondansetron HCl 4 mg 08/29/23 18:29 08/29/23 19:03 Ondansetron Hcl 4 Mg/2 Ml Vial IVPUSH 08/29/23 18:30 4 mg ONCE ONE Administration Medical Decision Making Medical Decision Making [facility] Narrative: 28-year-old female presents for evaluation of vomiting. She has been here this is her 5th visit in the last month for similar symptoms. She does not appear clinically dehydrated or hypovolemic. We will try to treat her symptoms. Patient reports some specks of blood which is likely just esophageal irritation. Her H&H is within normal limits. Plan for IV fluids, Reglan, Benadryl, GI cocktail and re-evaluate. Will consider touching assignments as this was the patient's 5th visit here I have a low suspicion for pancreatitis, biliary disease the patient is nontender, her workups have been largely benign.. She has had a reactive leukocytosis on recent visits Differential Diagnosis Differential Diagnoses: The differential diagnosis associated with the presentation includes Hyperemesis gravidarum Acute nausea/vomiting Gastritis Biliary colic Dehydration Lab Data [facility] Lab Attestation statement: I reviewed the patient's lab results. Mild leukocytosis to 13.0. No anemia. No significant electrolyte abnormalities. 08/29/23 14:54 08/29/23 14:54 Labs: Lab Results 08/29/23 08/29/23 Range/Units 14:54 20:14 WBC 13.0 H (4.8-10.8) X10*3/uL RBC 5.05 (4.20-5.50) X10*6/uL Hgb 13.4 (12.0-16.0) g/dl Hct 40.4 (37.0-47.0) % MCV 80.0 (80.0-98.0) fL MCH 26.5 L (27.0-33.0) pg MCHC 33.2 (31.0-35.0) g/dl RDW 13.0 (11.0-16.0) % Plt Count 271 (160-400) X10*3/uL MPV 11.7 (9.4-12.3) fL Immature Gran % (Auto) 0.3 (0.0-0.4) % Neut % (Auto) 84.7 H (45-73) % Lymph % (Auto) 8.6 L (20-40) % [place] % (Auto) 6.0 (2-11) % Eos % (Auto) 0.2 (0-4) % Baso % (Auto) 0.2 (0-2) % Lymph # (Auto) 1.1 L (1.2-4.9) X10*3/uL [place] # (Auto) 0.8 (0.1-1.2) X10*3/uL Eos # (Auto) 0.0 (0.0-0.4) X10*3/uL Baso # (Auto) 0.0 (0.0-0.2) X10*3/uL Abs Immat Gran (auto) 0.04 H (0.00-0.03) X10*3/uL Absolute Neuts (auto) 11.1 H (2.0-8.3) x10*3/uL Absolute Nucleated RBC 0.000 (0.0-0.012) X10*3/uL Nucleated RBC % (auto) 0.0 (0.0-0.2) /100WBC Sodium 138 (135-145) mmol/L Potassium 3.5 (3.3-5.1) mmol/L Chloride 105 (96-108) mmol/L Carbon Dioxide 21 L (22-29) mmol/L Anion Gap 16 (12-20) BUN 7 L (9-16) mg/dL Creatinine 0.75 (0.5-1.4) mg/dL Estim Creat Clear Calc 93.9 Estimated GFR > 60 Random Glucose 97 (60-115) mg/dL Calcium 10.0 (8.4-10.2) mg/dL Total Bilirubin 0.7 (0.0-1.0) mg/dL AST 15 (5-31) U/L ALT 9 (0-31) U/L Alkaline Phosphatase 38 L (39-117) U/L Total Protein 8.1 H (6.5-8.0) g/dL Albumin 4.3 (3.5-5.0) g/dL Lipase 23 (8-78) U/L Beta HCG, Quant 230510 mIU/mL Urine Color Dark Yellow Urine Appearance Cloudy Urine pH 5.5 (5.0-9.0) Ur Specific [place] >= 1.030 H (1.005-1.025) Urine Protein 30 (1+) H (Neg-Trace) mg/dL Urine Glucose (UA) Negative (Negative) mg/dL Urine Ketones >=160 (Negative) mg/dL Urine Blood Negative (Negative) Urine Nitrite Negative (Negative) Ur Leukocyte Esterase Small (1+) H (Negative) Urine RBC 6-10 H (0-2) /HPF Urine WBC 11-20 H (0-5) /HPF Ur Squamous Epith Cells >20 (0-2) /HPF Urine Bacteria 4+ (None Seen) Hyaline Casts 3-5 (0-2) /LPF Urine Test POSITIVE H (NEGATIVE) Discharge Plan Discharge Clinical Impression: Hyperemesis gravidarum Patient Disposition: Home, Self-Care Instructions: Hyperemesis Gravidarum (ED) Additional Instructions: Your blood work was reassuring. Your symptoms are likely related to your call [facility] tomorrow morning to see if they can expedite your appointment. Take Maalox as needed for abdominal pain use your Zofran or Reglan for nausea and vomiting Prescriptions: New alum-mag hydroxide-simeth [Maalox Advanced] 200-200-20 mg/5 mL suspension 10 ml PO QID PRN (Reason: indigestion) Qty: 300 0RF Rx Instructions: administer between meals and at bedtime No Action ondansetron 4 mg tablet,disintegrating 4 mg PO Q8H PRN (Reason: nausea and vomiting) Qty: 10 0RF metoclopramide HCl [Reglan] 10 mg tablet 10 mg PO Q6H PRN (Reason: nausea and vomiting) Qty: 10 0RF Stand Alone Forms: Work/School Release Interventions: ED Discharge Assessment Last Done: 08/29/23 21:35 Discharge Date/Time: 08/29/23 21:36
[2023-08-29 15:40] VITALS: BP 133/62; PULSE 65; RESP 16; TEMP 37; O2SAT 100
--- NOTE | 2023-08-29 16:13 | PC.NURSE ---
patient a&ox3, iv inserted, labs previously drawn, pt medicated per order, c/o abd pain from n/v, per provider pt does not need urine. call ivgil within reach, will continue to monitor
[2023-08-29 18:00] VITALS: BP 115/66; PULSE 71; RESP 16; TEMP 37.7; O2SAT 98
--- NOTE | 2023-08-29 19:03 | PC.NURSE ---
pt dry heaving, pt medicated with zofran, will hold off giving malox/lido- provider is aware as is overnight nurse. vitals continue to be stable, call vigil within reach, will continue to monitor
--- NOTE | 2023-08-29 20:47 | PC.NURSE ---
[place] and jello given per provider request pt able to tolerate well; no vomiting. pt reports nausea not worsened by food. pt medicated per jan. vss. call vigil within reach.
[2023-08-29 20:48] VITALS: BP 105/61; PULSE 65; RESP 16; O2SAT 99
--- NOTE | 2023-08-29 21:07 | PC.NURSE ---
pt tolerated po meds; no vomiting at this time.
== END 2023-08-29 21:36 | disposition home or self-care (01) ==
PROVIDERS: Emergency Provider Internal Medicine; PCP Family Medicine
DX: O21.0 Mild hyperemesis gravidarum (principal); R19.7 Diarrhea, unspecified; Z3A.08 8 weeks gestation of pregnancy; Z79.899 Other long term (current) drug therapy
CPT/HCPCS: 36415; 80053; 81001; 81025; 83690; 84702; 85025; 87086; 96361; 96374; 96375; 99284; 99285; J1200; J2405; J2765

== ENCOUNTER 2025-08-16 12:04 | Outpatient (REF) | payer MEDICAID, SELFPAY ==
--- OUTSIDE RECORDS SUMMARY | 2025-08-16 11:15 | XMS_ITS | Encounter Summary ---
Author Organization [employer] Address [address] [place] [address] 7 [place] [address] Care Team Providers Care Solar Lab Technician Name Role Phone Irma Cage MD Primary Care Pro vider Reason for Referral * Imaging (Routine) - Authorized Specialty Diagnoses / Procedures Referred By Contac t Referred To Contact Radiology Diagnoses Periumbilical pain Procedures US Abdomen Limited Jacy Carroll ANP [address] [place] [address] Phone: tel: fax: [address] Phone: tel: fax: Referral ID Status Reason Start Date Expiration Date V isits Requested Visits Authorized [id number] Authorized 08/16/2025 08/16/2026 1 1 Reason for Visit * Reason Comments sick visit Encounter Details Date Type Department Care Team (Late st Contact Info) Description 08/16/2025 11:15 AM EDT Office Visit [facility] [address], [place] [phone] Jacy Carroll ANP [address] [place], [place] [phone] Diastasis recti (Primary Dx); Periumbilical pain; Gastroesophageal reflux disease, unspecified whether esophagitis present Social History Tobacco Use Types Packs/Day Years Used Date Smoking Tobacco: Never Passive Smoke Exposure: Never Smokeless Tobacco: Never Tobacco Cessation:Counseling Given: Not Answered Alcohol Use Standard Drinks/Week Comments Never 0 (1 standard drink = 0.6 oz pur e alcohol) Depression Answer Date Recorded Patient Health Questionnaire-9 Score 3 06/30/2024 Patient Health Questionnaire-9 Score 3 06/30/2024 Last PHQ-9: Questionnaire Data Not on file 0 06/30/2024 Housing Stability Answer Date Recorded What is your housing situation today? I have fercho [place] 04/06/[address] you li ve. Do you have problems with any of the following? None of the above 04/06/2024 Food Insecurity Answer Date Recorded Within the past 12 months, y ou worried that your food would run out before you got money to buy more: Never True 04/06/2024 Within the past 12 months,th e food you bought just didn't last and you didn't have enough money to get more: Never True Transportation Answer Date Recorded In the past 12 months, has l ack of transportation kept you from medical appts, meetings, work or from getting things needed for daily living? No 04/06/2024 Utilities Answer Date Recorded In the past 12 months, has t he electric, gas, oil or water company threatened to shut off services in your home? I am not sure 04/06/2024 Depression Answer Date Recorded Patient Health Questionnaire-2 Score 0 06/30/2024 Internet Access Answer Date Recorded Internet Access Q1 Yes 07/24/2024 Internet Access Q2 Not on file 07/24/2024 Comments No Sex and Gender Information Value Date Recorded Sex Assigned at Female 09/21/2022 10:22 AM EDT Legal Sex Female 10:22 AM EDT Gender Identity Female 09/21/2022 10:22 AM EDT Sexual Orientation Straight 09/21/2022 10 :22 AM EDT documented as of this encounter Last Filed Vital Signs Vital Sign Reading Time Taken Comments Blood Pressure 110/78 08/16/2025 11:04 AM EDT Pulse 60 08/16/2025 11:04 AM EDT Temperature 36.2 C (97.2 F) 08/16/2025 11:04 AM EDT Respiratory Rate 16 08/16/2025 11:04 AM EDT Oxygen Saturation - - Inhaled Oxygen Concentration - - Weight 67.3 kg (148 lb 6.4 oz) 08/16/2025 11:04 AM EDT Height 162.6 cm (5' 4 ) 08/16/2025 11:04 AM EDT Body Mass Index 25.47 08/16/2025 11:04 AM EDT documented in this encounter Progress Notes * JAMES Marie - 08/16/2025 11:15 AM EDT Subjective Patient ID: Teresa Londono is a 30 y.o. female who presents for sick visit . HPI Per triage Patient reports that she sought evaluation at [facility] in [facility] for laser typetreatment to address abdominal fat. Patient was denied treatment as reported that she did not have enough fat for this treatment and upon palpation area intelligence technician identified a mass in her abdomen. Patient with documented umbilical hernia per chart but reports that this was not the issue. Area is above umbilicus and at midline. Patient denies vomiting but has nausea that affects her intake. Patient feels that this mass sometimes has movement and was identified years ago withUS when . Area is painful, no postural changes. On exam 06/30/24 Small reducible umbilical hernia Here today w/ chronic periumbilical pain since she was . Got Repair of umbilical hernia in January 26 at [facility]. Feels sometimes something moving in abdominal area. Feels nauseated sometimes when she eats. Does have a lot of reflux since giving . BCM salpingectomy Dione CONNOLLY provided Belarusian interpretation. Review of Systems Constitutional: Negative for chills and fever. HENT: Negative for sore throat. Respiratory: Negative for cough and shortness of breath. Cardiovascular: Negative for chest pain. Gastrointestinal: Negative for constipation and diarrhea. Endocrine: Negative for polydipsia, polyphagia and polyuria. Genitourinary: Negative for dysuria. Neurological: Negative for weakness. Objective BP 110/78 (BP Location: Left arm, Patient Position: Sitting, BP Cuff Size: Adult) Pulse60 Temp 97.2 ??F (36.2 ??C) (Oral) Resp 16 Ht 5' 4 (1.626 m) Wt 148 lb 6.4 oz (67.3 kg) BMI 25.47 kg/m?? Physical Exam Vitals reviewed. Constitutional: General: She is not in acute distress. Appearance: Normal appearance. She is not ill-appearing. HENT: Head: Normocephalic and atraumatic. Eyes: General: No scleral icterus. Extraocular Movements: Extraocular movements intact. Pupils: Pupils are equal, round, and reactive to light. Cardiovascular: Rate and Rhythm: Normal rate and regular rhythm. Pulmonary: Effort: Pulmonary effort is normal. No accessory muscle usage or respiratory distress. Abdominal: General: Bowel sounds are normal. Palpations: Abdomen is soft. Comments: +diastasis recti, mild tenderness above umbilicus Neurological: Mental Status: She is alert and oriented to person, place, and time. Psychiatric: Mood and Affect: Mood normal. Behavior: Behavior normal. Assessment/Plan Diagnoses and all orders for this visit: Diastasis recti Core exercises, pt reassured, will check US given pt sensation of mass and pain Periumbilical pain - US Abdomen Limited; Future Gastroesophageal reflux disease, unspecified whether esophagitis present Testing as below and bid famotidine Symptoms are quite severe, pt needs to sleep sitting up Avoid triggers. Common triggers (food that make your symptoms worse) include coffee, chocolate, alcohol, peppermint, and fatty foods. Avoid tight clothing that squeezes your mid section. Use medications as prescribed and please let us know if these are not working. - Helicobacter pylori Antigen, EIA, Stool; Future - famotidine (Pepcid) 20 MG tablet; Take 1 tablet twice daily as needed for acid reflux To be scheduled w/ PCP for follow-up documented in this encounter Miscellaneous Notes * Patient Education Note - JAMES Marie - 08/16/2025 3:54 PM EDT Images from the original note were not included. Educaci?n del paciente Tabla de contenidos Ejercicios para fortalecer los m?sculos del tronco (Exercises for Core Strength) Para renetta videos y toda sanchez educaci?n en l?smita, visite [email or web address] o escanee diane c?digo QR con sanchez tel?fono inteligente. El acceso a diane contenido expirar?? en un a?o. Ejercicios para fortalecer los m?sculos del tronco Exercises for Core Strength Pregunte al m?dico qu?? ejercicios son seguros para usted. Benito los ejercicios exactamente jason se lo haya indicado el m?dico y grad?elos jason se lo hayan indicado. Es normal sentir un leve estiramiento, tironeo, opresi?n o malestar al hacer estos ejercicios. Det?ngase de inmediato si siente un dolor repentino o el dolor empeora. No comience a hacer estos ejercicios hasta que se lo indique el m?dico. Beneficios de los ejercicios para fortalecer los m?sculos del tronco Los ejercicios para los m?sculos del tronco fortalecen los m?sculos del vientre. Estos m?sculos ayudan a sostener el cuerpo y a proteger la?espalda. Es importante mantener jose los m?sculos del tronco para evitar lesiones. Algunas actividades, jason yoga y pilates, pueden ayudar a fortalecer los m?sculos del?tronco. Tambi?n puede fortalecer los m?sculos del tronco haciendo ejercicios en sanchez casa. Consulte siempre con el m?dico antes de empezar ejercicios nuevos. Los ejercicios para fortalecer los m?sculos del tronco pueden: Ayudar a disminuir el dolor de espalda. Ayudarle a fortalecerse despu?s de constance lesi?n de espalda o columna vertebral. Prevenir lesiones monika la actividad f?seamus, especialmente lesiones en la espalda, la cadera y las rodillas. C?mo hacer los ejercicios para fortalecer los m?sculos del tronco Benito cada ejercicio de 10 a 15?veces, o hasta que se sienta cansado. Det?ngase si siente alg?n tipode dolor. Si el dolor persiste o empeora, llame al m?dico. Para los ejercicios en el suelo, utiliza constance colchoneta acolchada blanda para los ejercicios o parayoga. Benavides 1. Recu?stese sobre la espalda con las rodillas flexionadas y los pies planos sobre el piso. Levante la cadera de modo que las rodillas, la cadera y los hombros para que formen constance l?smita recta. No arquee demasiado la espalda. Mantenga contra?dos los m?sculos del vientre. Mantenga esta posici?n monika 3 a 5?segundos. Baje lentamente las caderas. Relaje los m?sculos entre repeticiones. Benavides con constance dagoberto pierna 1. Recu?stese sobre la espalda con las rodillas flexionadas y los pies planos sobre el piso. Levante la cadera de modo que las rodillas, la cadera y los hombros para que formen constance l?smita recta. No arquee demasiado la espalda. Mantenga contra?dos los m?sculos del vientre. Levante un pie del suelo y estire yury?pierna. Mantenga esta posici?n monika 3 a 5?segundos. Vuelva a apoyar el pie en el suelo y baje la cadera. Repita con la otra pierna. Benavides lateral 1. Recu?stese de costado con las rodillas flexionadas. Ap?yese en el codo que est?? cerca del suelo. Levante la cadera y el cuerpo del suelo de modo que el hombro, la cadera y el pie formen constance l?smita?recta. Mantenga esta posici?n monika 10?segundos. Mantenga la massimo y el nigel en constance posici?n?normal. Mantenga contra?dos los m?sculos del vientre. Vuelva a bajar la cadera. Repita e intente mantener esta posici?n por m?s tiempo, hasta llegar a mantenerla por 30 segundos. Abdominales 1. Recu?stese sobre la espalda con las rodillas flexionadas y los pies planos sobre el piso. Cruce los brazos sobre el pecho. Sin doblar el nigel, baje levemente el ment?n en direcci?n al pecho. Contraiga los m?sculos del vientre mientras levanta el pecho lo suficiente jason para despegar levemente los om?platos del suelo. No contenga la respiraci?n. No doble el nigel. Puede hacer esto con elevaciones cortas o largas. Vuelva a la posici?n inicial lentamente. Superman en cuadrupedia o bird dog 1. Ap?yese sobre las chiquita y las rodillas, con las piernas paralelas a los hombros y los brazos debajo de los hombros. Mantenga la espalda recta. Endurezca los m?sculos del abdomen. Levante constance pierna y mant?ngala recta y paralela al suelo. Vuelva a bajar la pierna. Levante un brazo y mant?ngalo recto y paralelo al suelo. Baje lentamente el?brazo. Repita con el otro brazo y la otra pierna. Si puede, intente levantar un brazo y la pierna contraria al mismo tiempo. Plancha 1. Acu?stese boca abajo. Apoye el cuerpo sobre los antebrazos y los pies, manteniendo las piernas rectas. El cuerpo debe formar constance l?smita recta. Sostenga esta posici?n monika 10?segundos mientras mantiene contra?dos los m?sculos del vientre. Vuelva a bajar el cuerpo. Repita e intente mantener esta posici?n por m?s tiempo, hasta llegar a mantenerla por 30 segundos. Fortalecimiento madhavi 1. P?rese con los pies separados al ancho de los hombros. Sostenga constance pelota frente a usted con los brazos extendidos. Contraiga los m?sculos del vientre y gire lentamente la cintura de un lado a?otro. Mantenga los pies planos. Cuando se sienta c?modo, pruebe con constance pelota m?s pesada. Fortalecimiento de la parte superior del tronco 1. P?rese a constance distancia aproximada de 18?pulgadas (46?cm) de la pared, con la espalda contra kirk. Mantenga los pies planos y paralelos a los hombros. Endurezca los m?sculos del abdomen. Doble la cadera y las rodillas. Lentamente, intente tocar entre las piernas la pared que se encuentra detr?s de usted. Lentamente, vuelva a incorporarse. Levante los brazos sobre la massimo e intente tocar la pared que se encuentra detr?s de usted. Regrese a la posici?n inicial. Esta informaci?n no tiene jason fin reemplazar el consejo del m?dico. Aseg?rese de hacerle al m?dicocualquier pregunta que tenga. Document Released: 2018-05-17 Document Updated: 2024-11-30 Document Reviewed: 2024-11-30 Elsevier Patient Education ? 2024 [employer] Inc. * Patient Education Note - JAMES Marie - 08/16/2025 3:54 PM EDT Images from the original note were not included. Patient Education Table of Contents Ejercicios para fortalecer los m?sculos del tronco (Exercises for Core Strength) To view videos and all your education online visit, [email or web address] or scan this QR code with your smartphone. Access to this content will in one year. Ejercicios para fortalecer los m?sculos del tronco Exercises for Core Strength Pregunte al m?dico qu?? ejercicios son seguros para usted. Benito los ejercicios exactamente jason se lo haya indicado el m?dico y grad?elos jason se lo hayan indicado. Es normal sentir un leve estiramiento, tironeo, opresi?n o malestar al hacer estos ejercicios. Det?ngase de inmediato si siente un dolor repentino o el dolor empeora. No comience a hacer estos ejercicios hasta que se lo indique el m?dico. Beneficios de los ejercicios para fortalecer los m?sculos del tronco Los ejercicios para los m?sculos del tronco fortalecen los m?sculos del vientre. Estos m?sculos ayudan a sostener el cuerpo y a proteger la?espalda. Es importante mantener jose los m?sculos del tronco para evitar lesiones. Algunas actividades, jason yoga y pilates, pueden ayudar a fortalecer los m?sculos del?tronco. Tambi?n puede fortalecer los m?sculos del tronco haciendo ejercicios en sanchez casa. Consulte siempre con el m?dico antes de empezar ejercicios nuevos. Los ejercicios para fortalecer los m?sculos del tronco pueden: Ayudar a disminuir el dolor de espalda. Ayudarle a fortalecerse despu?s de constance lesi?n de espalda o columna vertebral. Prevenir lesiones monika la actividad f?seamus, especialmente lesiones en la espalda, la cadera y las rodillas. C?mo hacer los ejercicios para fortalecer los m?sculos del tronco Benito cada ejercicio de 10 a 15?veces, o hasta que se sienta cansado. Det?ngase si siente alg?n tipode dolor. Si el dolor persiste o empeora, llame al m?dico. Para los ejercicios en el suelo, utiliza constance colchoneta acolchada blanda para los ejercicios o parayoga. Benavides 1. Recu?stese sobre la espalda con las rodillas flexionadas y los pies planos sobre el piso. Levante la cadera de modo que las rodillas, la cadera y los hombros para que formen constance l?smita recta. No arquee demasiado la espalda. Mantenga contra?dos los m?sculos del vientre. Mantenga esta posici?n monika 3 a 5?segundos. Baje lentamente las caderas. Relaje los m?sculos entre repeticiones. Benavides con constance dagoberto pierna 1. Recu?stese sobre la espalda con las rodillas flexionadas y los pies planos sobre el piso. Levante la cadera de modo que las rodillas, la cadera y los hombros para que formen constance l?smita recta. No arquee demasiado la espalda. Mantenga contra?dos los m?sculos del vientre. Levante un pie del suelo y estire yury?pierna. Mantenga esta posici?n monika 3 a 5?segundos. Vuelva a apoyar el pie en el suelo y baje la cadera. Repita con la otra pierna. Benavides lateral 1. Recu?stese de costado con las rodillas flexionadas. Ap?yese en el codo que est?? cerca del suelo. Levante la cadera y el cuerpo del suelo de modo que el hombro, la cadera y el pie formen constance l?smita?recta. Mantenga esta posici?n monika 10?segundos. Mantenga la massimo y el nigel en constance posici?n?normal. Mantenga contra?dos los m?sculos del vientre. Vuelva a bajar la cadera. Repita e intente mantener esta posici?n por m?s tiempo, hasta llegar a mantenerla por 30 segundos. Abdominales 1. Recu?stese sobre la espalda con las rodillas flexionadas y los pies planos sobre el piso. Cruce los brazos sobre el pecho. Sin doblar el nigel, baje levemente el ment?n en direcci?n al pecho. Contraiga los m?sculos del vientre mientras levanta el pecho lo suficiente jason para despegar levemente los om?platos del suelo. No contenga la respiraci?n. No doble el nigel. Puede hacer esto con elevaciones cortas o largas. Vuelva a la posici?n inicial lentamente. Superman en cuadrupedia o bird dog 1. Ap?yese sobre las chiquita y las rodillas, con las piernas paralelas a los hombros y los brazos debajo de los hombros. Mantenga la espalda recta. Endurezca los m?sculos del abdomen. Levante constance pierna y mant?ngala recta y paralela al suelo. Vuelva a bajar la pierna. Levante un brazo y mant?ngalo recto y paralelo al suelo. Baje lentamente el?brazo. Repita con el otro brazo y la otra pierna. Si puede, intente levantar un brazo y la pierna contraria al mismo tiempo. Plancha 1. Acu?stese boca abajo. Apoye el cuerpo sobre los antebrazos y los pies, manteniendo las piernas rectas. El cuerpo debe formar constance l?smita recta. Sostenga esta posici?n monika 10?segundos mientras mantiene contra?dos los m?sculos del vientre. Vuelva a bajar el cuerpo. Repita e intente mantener esta posici?n por m?s tiempo, hasta llegar a mantenerla por 30 segundos. Fortalecimiento madhavi 1. P?rese con los pies separados al ancho de los hombros. Sostenga constance pelota frente a usted con los brazos extendidos. Contraiga los m?sculos del vientre y gire lentamente la cintura de un lado a?otro. Mantenga los pies planos. Cuando se sienta c?modo, pruebe con constance pelota m?s pesada. Fortalecimiento de la parte superior del tronco 1. P?rese a constance distancia aproximada de 18?pulgadas (46?cm) de la pared, con la espalda contra kirk. Mantenga los pies planos y paralelos a los hombros. Endurezca los m?sculos del abdomen. Doble la cadera y las rodillas. Lentamente, intente tocar entre las piernas la pared que se encuentra detr?s de usted. Lentamente, vuelva a incorporarse. Levante los brazos sobre la massimo e intente tocar la pared que se encuentra detr?s de usted. Regrese a la posici?n inicial. Esta informaci?n no tiene jason fin reemplazar el consejo del m?dico. Aseg?rese de hacerle al m?dicocualquier pregunta que tenga. Document Released: 2018-05-17 Document Updated: 2024-11-30 Document Reviewed: 2024-11-30 Cards Off Patient Education ? 2024 [employer]. documented in this encounter Plan of Treatment Scheduled Orders Name Type Priority Associated Diagnoses Orde r Schedule US Abdomen Limited Imaging Routine Periumbilical pain Expected: 08/16/2025, Expires: 08/16/2026 Helicobacter pylori Antigen, EIA, Stool Lab Routine Gastroesophageal reflux disease, unspecified whether esophagitis present Expected: 08/16/2025, Expires: 08/16/2026 documented as of this encounter Visit Diagnoses Diagnosis Diastasis recti- Primary Diastasis of muscle Periumbilical pain Abdominal pain, periumbilic Gastroesophageal reflux disease, unspecified whether esophagitis present documented in this encounter Additional Health Concerns Assessment Noted Time PHQ-9 Depression Total Score: 3 06/30/20 10:40 AM EDT documented as of this encounter Care Teams Solar Lab Technician Relationship Specialty Start Date End Date Irma Cage MD [address] [place] [id number] PCP - General Internal Medicine 09/05/24 documented as of this encounter
--- OUTSIDE RECORDS SUMMARY | 2025-08-16 17:03 | XMS_ITS | Encounter Summary ---
Author Organization [employer] Address [address] [facility] [address] [place] [address] Care Team Providers Care Industrial Plant Custodian Name Role Phone Irma Cage MD Primary Care Pro vider Encounter Details Date Type Department Care Team (Latest Contact Info) Description 08/16/2025 Travel Social History Tobacco Use Types Packs/Day Years Used Date Smoking Tobacco: Never Passive Smoke Exposure: Never Smokeless Tobacco: Never Alcohol Use Standard Drinks/Week Comments Never 0 [...] AM EDT documented as of this encounter Plan of Treatment Not on file documented as of this encounter Visit Diagnoses Not on filedocumented in this encounter Additional Health Concerns Assessment Noted Time PHQ-9 Depression Total Score: 3 06/30/20 24 10:40 AM EDT documented as of this encounter Care Teams Industrial Plant Custodian Relationship Specialty Start Date End Date Irma Cage MD [address] [place] [id number] PCP - General Internal Medicine 09/05/24 documented as of this encounter
--- OUTSIDE RECORDS SUMMARY | 2025-08-16 17:03 | XMS_ITS | Clinical Summary ---
Author Organization [employer] Address [address] [place] [address] 7t [place] [address] Care Team Providers Care Hearth Feeder Name Role Phone Irma Cage MD Primary Care Pro vider Allergies No known active allergies Medications MV-Min-Fe Fum-FA-DHA ( 1 PO) Take by mouth. Active fluticasone (Flonase) 50 MCG/ACT nasal sprayIndications :Acute non-recurrent sinusitis, unspecified location Administer 1-2 sprays into each nostril Once per day. Shake gently. Before first use, prime pump. After use, clean tip and replace cap. 16 g 2 5 05/14/20 26 Active famotidine (Pepcid) 20 MG tabletIndication s:Gastroesophage al reflux disease, unspecified whether esophagitis present Take 1 tablet twice daily as needed for acid reflux 60 tablet 5 Active Active Problems Problem Noted Date Diagnosed Date Health care maintenance 06/30/2024 Umbilical hernia without obstruction and without gangrene 06/30/2024 Chronic GERD 06/30/2024 Encounters Date Type Department Care Team Description 08/16/2025 11:15 AM EDT Office Visit [facility] [address] [place] [address] Jacy Carroll ANP Diastasis recti (Primary Dx); Periumbilical pain; Gastroesophageal reflux disease, unspecified whether esophagitis present 08/16/2025 Travel 08/16/2025 Telephone [facility] [address] [place] [address] Irma Cage MD Nurse Triage 05/29/2025 Telephone [facility] [address] [place] [address] Irma Cage MD CHART PREP 05/28/2025 Telephone [facility] [address] [place] [address] Irma Cage MD Med Refill from Last 3 Months Immunizations Immunization Administration Dates Next Due DTaP 01/08/2000, 8,04/18/1996,12/15,1995 HPV, Quadrivalent 02/03/2013 Hep B, Adolescent or Pediatric 04/18/1996,1995,1995 Hib (HbOC) 06/12/1998, 6,1995,09/23 IPV 01/08/2000, 6,1995,09/23 Influenza injectable quadriv alent preservative free 02/19/2020 Influenza, IIV3, injectable 02/19/2020 MMR 01/08/2000,06/12/1998 Meningococcal ACWY, unspecified 02/03/2013 Meningococcal MCV4P ACYW-135 02/03/2013 Tdap 02/19/2020,05/31/2007 Family History Medical History Relation Name Comments HTN Father HTN Mother Relation Name Status Comments Father Mother Social History Tobacco Use Types Packs/Day Years [...] Orientation Straight 09/21/2022 10 :22 AM EDT Last Filed Vital Signs Vital Sign Reading Time Taken Comments Blood Pressure 110/78 08/16/2025 11:04 AM EDT Pulse 60 08/16/2025 11:04 AM EDT Temperature 36.2 C (97.2 F) 08/16/2025 11:04 AM EDT Respiratory Rate 16 08/16/2025 11:04 AM EDT Oxygen Saturation 96% 05/14/2025 1:48 PM EDT Inhaled Oxygen Concentration - - Weight 67.3 kg (148 lb 6.4 oz) 08/16/2025 11:04 AM EDT Height 162.6 cm (5' 4 ) 08/16/2025 11:04 AM EDT Body Mass Index 25.47 08/16/2025 11:04 AM EDT Plan of Treatment Health Maintenance Due Date Last Done Comments Disability Screening 1995 Alcohol/Substance Use Screening 2007 Family Planning (PISQ) 2010 HPV Vaccines (2 - 3-dose series) 03/03/2013 02/03/2013 SDOH Screening 04/06/2025 04/06/2024 Depression Screening 06/30/2025 06/30/2024, 06/30/20 24 COVID-19 Vaccine ( season) 2025 Influenza Vaccine (#1) 2025 02/19/2020, 2019 HPV/Cotest 2025 Tobacco Screening 08/16/2026 08/16/2025 Cervical Cancer Screening 09/24/2026 Pap Smear 09/24/2026 09/24/2023 DTaP/Tdap/Td Vaccines (8 - Td or Tdap) 02/18/2030 02/19/2020, 05/31/2007, 01/08/2000, Additional history exists Zoster Vaccines (1 of 2) 2045 RSV Patients and Patients Aged 60 years or older (1 - 1-dose 75+ series) 2070 Hepatitis B Vaccines Completed 04/18/1996, 1995, 1995 HIB Vaccines Completed 06/12/1998, 06/1996, 1995, Additional history exists IPV Vaccines Completed 01/08/2000, 03/23, 1995, Additional history exists Meningococcal Vaccine Completed 02/03/2013, 013 HIV Screening Completed 05/21/2021 Hepatitis C Screening Completed 05/21/2021 Hepatitis A Vaccines Aged Out No long er eligible based on patient's age to complete this topic Meningococcal B Vaccine Aged Out No l onger eligible based on patient's age to complete this topic Pneumococcal Vaccine: Pediatrics (0 to 5 Years) and At-Risk Patients (6 to 49) Years Aged Out No longer eligible based on patient's age to complete this topic RSV under 20 months Aged Out No longe r eligible based on patient's age to complete this topic Rotavirus Vaccines Aged Out No longer eligible based on patient's age to complete this topic Procedures Procedure Name Priority Date/Time Associated Diagnosis Comments HM PAP/HPV Routine 09/24/2023 11:33 AM EDT ZZZ HISTORICAL HEPATITIS C AB W/REFL TO HCV RNA, QN, PCR Routine 05/21/2021 8:33 AM EDT HIV 1/2 ANTIGEN/ANTIBODY, FOURTH GENERATION W/RFL Routine 05/21/2021 8:33 AM EDT from Last 3 Months or Most Recently Relevant to Health Maintenance Results * HM PAP/HPV (09/24/2023 11:33 AM EDT) Historical Provider MD HEALTH MAINTENANCE Final Result * HEPATITIS C AB W/REFL TO HCV RNA, QN, PCR (05/21/2021 8:33 AM EDT) HEPATITIS C ANTIBODY NON-REACT MELBA NON-REACT MELBA [facility] INDEX 0.05 <1.00 [facility] Comment: HCV antibody was non-reactive. There is no laboratory evidence of HCV infection. In most cases, no further action is required. However, if recent HCV exposure is suspected, a test for HCV RNA (test code 96019) is suggested. For additional information please refer to http://Flipter.Instapagar/faq/OZV10k0 (This link is being provided for informational/ educational purposes only.) 05/21/2021 8:33 AM EDT Betty Rowley MD HISTORICAL/NON ORDERABLE LABS Final Result [facility] [address] * HIV 1/2 ANTIGEN/ANTIBODY,FOURTH GENERATION W/RFL (05/21/2021 8:33 AM EDT) Pathologist [facility] HIV-1/2 ANTIGEN AND ANTIBODIES, 4TH GENERATION W/ REFLEX NON-REACT MELBA NON-REACT MELBA [facility] Comment: HIV-1 antigen and HIV-1/HIV-2 antibodies were not detected. There is no laboratory evidence of HIV infection. PLEASE NOTE: This information has been disclosed to you from records whose confidentiality may be protected by state law. If your state requires such protection, then the state law prohibits you from making any further disclosure of the information without the specific written consent of the person to whom it pertains, or as otherwise permitted by law. A general authorization for the release of medical or other information is NOT sufficient for this purpose. For additional information please refer to http://Flipter.Instapagar/faq/NPD133 (This link is being provided for informational/ educational purposes only.) The performance of this assay has not been clinically validated in patients less than 2 years old. 05/21/2021 8:33 AM EDT us Betty Rowley MD LAB BLOOD ORDERABLES Final Re sult [facility] [address] from Last 3 Months or Most Recently Relevant to Health Maintenance Insurance [employer] [facility] [place] [facility] [place] Care Teams Hearth Feeder Relationship Specialty Start Date End Date Irma Cage MD [address] [place] [id number] PCP - General Internal Medicine 09/05/24
--- OUTSIDE RECORDS SUMMARY | 2025-08-16 17:03 | XMS_ITS | Encounter Summary ---
Author Organization [employer] Address [address] [place] [id number] Care Team Providers Care Boom Supervisor Name Role Phone Irma Cage MD Primary Care Pro vider Reason for Visit * Reason Onset Date Comments Nurse Triage 08/16/2025 Encounter Details Date Type Department Care Team ([facility] st Contact Info) Description 08/16/2025 Telephone [facility] [address] [place] [address] Irma Cage MD [address] [place] [address] Nurse Triage Social History Tobacco Use Types Packs/Day Years [...] AM EDT documented as of this encounter Miscellaneous Notes * Telephone Encounter - Iraida Danielleo, TRISTAN - 08/16/2025 10:38 AM EDT Triage call returned with BLS # [id number] Aldo Patient reports that she sought evaluation at [facility] in [facility] for laser type treatment to address abdominal fat. Patient was denied treatment as reported that she did not have enough fat for this treatment and upon palpation hydraulic technician identified a mass in her abdomen. Patient with documented umbilical hernia per chart but reports that this was not the issue. Area is above umbilicus and at midline. Patient denies vomiting but has nausea that affects her intake. Patient feels that this mass sometimes has movement and was identified years ago withUS when . Area is painful, no postural changes. Disposition reviewed and patient in agreement with plan. ASK/Jason KIRBY today at 11:15am. Multiple (2) protocols were used on this call. Disposition for Call: See in Office or Video Visit Today Protocol Used: Abdominal Pain - Upper (Adult) Protocol-Based Disposition: See in Office or Video Visit Today Video visit not offered Positive Triage Question: * Patient wants to be seen * All higher-acuity triage questions were negative Care Advice Discussed: * Reasons To Call Back - You become worse Protocol Used: Skin Lump or Localized Swelling (Adult) Protocol-Based Disposition: See in Office or Video Visit within 3 Days Video visit offer not recorded Positive Triage Question: * Small swelling or lump present > 1 week * All higher-acuity triage questions were negative Care Advice Discussed: * Reasons To Call Back - You become worse * Telephone Encounter - Valerie Kendall - 08/16/2025 10:14 AM EDT Tc from pt stating that she went for a laser procedure, but it was not performed. The provider refused for two reasons: they said she did not have any fat to remove and noted that she has a mass in her abdomen. Contact pt at [phone] Need roustabout crew leader documented in this encounter Plan of Treatment Not on file documented as of this encounter Visit Diagnoses Not on filedocumented in this encounter Additional Health Concerns Assessment Noted Time PHQ-9 Depression Total Score: 3 06/30/20 10:40 AM EDT documented as of this encounter Care Teams Boom Supervisor Relationship Specialty Start Date End Date Irma Cage MD [address] [place] [phone] PCP - General Internal Medicine 09/05/24 documented as of this encounter
--- OUTSIDE RECORDS SUMMARY | 2025-08-16 17:04 | XMS_ITS | Encounter Summary ---
Author Organization [employer] Address [address] [facility] 7t [place] [address] Care Team Providers Care Health Promotion Officer Name Role Phone Irma Cage MD Primary Care Pro vider Encounter Details Date Type Department Care Team ([facility] st Contact Info) Description 03/21/2025 Orders Only [facility] & PEDS [address] [place] [address] ProviderShona MD Social History Tobacco Use Types Packs/Day Years [...] is your housing situation today? I have ferchoshala [place] 04/06/[address] you [...] on file documented as of this encounter Procedures Procedure Name Priority Date/Time Associated Diagnosis Comments HM PAP/HPV Routine 09/24/2023 11:33 AM EDT documented in this encounter Results * HM PAP/HPV (09/24/2023 11:33 AM EDT) Historical Provider HEALTH MAINTENANCE Final Result documented in this encounter Visit Diagnoses Not on filedocumented in this encounter Additional Health Concerns Assessment Noted Time PHQ-9 Depression Total Score: 3 06/30/20 24 10:40 AM EDT documented as of this encounter Care Teams Health Promotion Officer Relationship Specialty Start Date End Date Irma Cage MD [address] [place] [phone] PCP - General Internal Medicine 09/05/24 documented as of this encounter
== END 2025-08-16 12:05 | disposition home or self-care (01) ==
LOC: HO.HHCL 12:04
PROVIDERS: PCP Family Medicine; Visit Provider Nurse Practitioner Primary Care
DX: Z13.89 Encounter for screening for other disorder (principal)

== ENCOUNTER 2025-08-20 17:57 | Outpatient (REF) | payer MEDICAID, SELFPAY ==
--- OUTSIDE RECORDS SUMMARY | 2025-08-16 11:15 | XMS_ITS | Encounter Summary ---
Author Organization [employer] Address [address] [place] [address] 7 [place] [address] Care Team Providers Care Doughnut Machine Operator Helper Name Role Phone Irma Cage MD Primary Care Pro vider Reason for Referral * Imaging (Routine) - Authorized Specialty Diagnoses / Procedures Referred By Contac t Referred To Contact Radiology Diagnoses Periumbilical pain Procedures US Abdomen Limited Jacy Carroll ANP [address] [place] [address] Phone: tel: fax: [address] Phone: tel: fax: Referral ID Status Reason Start Date Expiration Date V isits Requested Visits Authorized [id number] Authorized 08/16/2025 08/16/2026 1 1 Reason for Visit * Reason Comments sick visit Encounter Details Date Type Department Care Team (Late st Contact Info) Description 08/16/2025 11:15 AM EDT Office Visit [facility] [address] [place], [place] [phone] Jacy Carroll ANP [address] [place], [place] [phone] Diastasis recti (Primary Dx); Periumbilical pain; Gastroesophageal [...] Patient reports that she sought evaluation at [facility] in [facility] for laser typetreatment to address abdominal fat. Patient was denied treatment as reported that she did not have enough fat for this treatment and upon palpation carpet technician identified a mass in her abdomen. [...] of umbilical hernia in January 26 at [facility]. Feels sometimes something moving in abdominal area. Feels nauseated sometimes when she eats. Does have a lot of reflux since giving . BCM salpingectomy Dione CONNOLLY provided Armenian interpretation. Review of Systems Constitutional: Negative for [...] y toda sanchez educaci?n en l?smita, visite [email or web address] o escanee diane c?digo QR con sanchez [...] planos. Cuando se sienta c?modo, pruebe con consatnce pelota m?s pesada. Fortalecimiento de la parte [...] Reviewed: 2024-11-30 Elsevier Patient Education ? 2024 [employer] * Patient Education Note - JAMES Marie - 08/16/2025 3:54 PM EDT Images from the original note were not included. Patient Education Table of Contents Ejercicios para fortalecer los m?sculos del tronco (Exercises for Core Strength) To view videos and all your education online visit, [email or web address] or scan this QR code with your smartphone. Access to this content will in one year. Ejercicios para fortalecer los m?sculos del tronco Exercises for Core Strength Pregunte al m?dico qu?? ejercicios son seguros para usted. Ebnito los ejercicios exactamente jason se lo haya [...] 2018-05-17 Document Updated: 2024-11-30 Document Reviewed: 2024-11-30 [employer] Patient Education ? 2024 [employer] documented in this encounter Plan of [...] documented as of this encounter Care Teams Doughnut Machine Operator Helper Relationship Specialty Start Date End Date Irma Cage MD [address] [place] [id number] PCP - General Internal Medicine 09/05/24 documented as of this encounter
--- OUTSIDE RECORDS SUMMARY | 2025-08-20 18:51 | XMS_ITS | Encounter Summary ---
Author Organization [employer] Address [address] [place] [address] Care Team Providers Care Book Store Associate Name Role Phone Irma Cage MD Primary Care Pro vider Reason for Visit * Reason Onset Date Comments Nurse Triage 08/16/2025 Encounter Details Date Type Department Care Team ([facility] st Contact Info) Description 08/16/2025 Telephone [facility] [address] [place] [address] Irma Cage MD [address] [place] [address] Nurse Triage Social History Tobacco Use Types [...] EDT Triage call returned with BLS # [id number] Aldo Patient reports that she sought evaluation at [facility] in [facility] for laser type treatment to address abdominal fat. Patient was denied treatment as reported that she did not have enough fat for this treatment and upon palpation solar installer technician identified a mass in her abdomen. [...] mass in her abdomen. Contact pt at [phone] Need institute director documented in this encounter Plan of Treatment Not on file documented as of this encounter Visit Diagnoses Not on filedocumented in this encounter Additional Health Concerns Assessment Noted Time PHQ-9 Depression Total Score: 3 06/30/20 10:40 AM EDT documented as of this encounter Care Teams Book Store Associate Relationship Specialty Start Date End Date Irma Cage MD [address] [place] [phone] PCP - General Internal Medicine 09/05/24 documented as of this encounter
--- OUTSIDE RECORDS SUMMARY | 2025-08-20 18:51 | XMS_ITS | Clinical Summary ---
Author Organization [employer] Address [address] [place] [address] 7t [place] [address] Care Team Providers Care Lead Java Software Engineer Name Role Phone Irma Cage MD Primary [...] Description 08/16/2025 11:15 AM EDT Office Visit [facility] [address] [place] [address] Jacy Carroll ANP Diastasis recti (Primary Dx); Periumbilical pain; Gastroesophageal reflux disease, unspecified whether esophagitis present 08/16/2025 Travel 08/16/2025 Telephone [facility] [address] [place] [address] Irma Cage MD Nurse Triage 05/29/2025 Telephone [facility] [address] [place] [address] Irma Cage MD CHART PREP 05/28/2025 Telephone [facility] [address] [place] [address] Irma Cage MD Med Refill from Last [...] HEPATITIS C ANTIBODY NON-REACT MELBA NON-REACT MELBA [facility] INDEX 0.05 <1.00 [facility] Comment: HCV antibody was non-reactive. There is no laboratory evidence of HCV infection. In most cases, no further action is required. However, if recent HCV exposure is suspected, a test for HCV RNA (test code 02515) is suggested. For additional information please refer to http://MilePoint.Flukle/faq/ERT64m0 (This link is being provided for informational/ educational purposes only.) 05/21/2021 8:33 AM EDT Betty Rowley MD HISTORICAL/NON ORDERABLE LABS Final Result [facility] [address] * HIV 1/2 ANTIGEN/ANTIBODY,FOURTH GENERATION W/RFL (05/21/2021 8:33 AM EDT) Pathologist [facility] HIV-1/2 ANTIGEN AND ANTIBODIES, 4TH GENERATION W/ REFLEX NON-REACT MELBA NON-REACT MELBA [facility] Comment: HIV-1 antigen and HIV-1/HIV-2 [...] purpose. For additional information please refer to http://MilePoint.Flukle/faq/TQX101 (This link is being provided for informational/ educational purposes only.) The performance of this assay has not been clinically validated in patients less than 2 years old. 05/21/2021 8:33 AM EDT us Betty Rowley MD LAB BLOOD ORDERABLES Final Re sult [facility] [address] from Last 3 Months or Most Recently Relevant to Health Maintenance Insurance [facility] [facility] [place] [facility] [place] Care Teams Lead Java Software Engineer Relationship Specialty Start Date End Date Irma Cage MD [address] [place] [id number] PCP - General Internal Medicine 09/05/24
--- OUTSIDE RECORDS SUMMARY | 2025-08-20 18:51 | XMS_ITS | Clinical Summary ---
Author Organization [facility] Address [address] [place] [address] Care Team Providers Care Medical Reimbursement Specialist Name Role Phone Unavailable Primary Care Provider Unavailabl e Social History Tobacco Use Types Packs/Day Years Used Date Smoking Tobacco: Never Assessed Comments Unknown Sex and Gender Information Value Date Recorded Sex Assigned at Not on file Legal Sex Female 1:45 AM EST Gender Identity Not on file Sexual Orientation Not on file Obstetrics History Plan of Treatment Health Maintenance Due Date Last Done Comments DTaP,Tdap,and Td Vaccines (1 - Tdap) 2014 Hepatitis B Vaccines (1 of 3 - 19+ 3-dose series) 2014 Cervical Cancer Screening: P ap Smear 2016 Depression Screening 11/22/2024 COVID-19 Vaccine (1 - 2023-2 5 season) 2025 Influenza Vaccine (#1) 2025 RSV Immunization Adult Patie nts (1 - 1-dose 75+ series) 2070 HIB Vaccines Aged Out No longer eligi ble based on patient's age to complete this topic HPV Vaccines Aged Out No longer eligi ble based on patient's age to complete this topic Hepatitis A Vaccines Aged Out No long er eligible based on patient's age to complete this topic IPV Vaccines Aged Out No longer eligi ble based on patient's age to complete this topic MMR Vaccines Aged Out No longer eligi ble based on patient's age to complete this topic Meningococcal ACWY Vaccine Aged Out N o longer eligible based on patient's age to complete this topic Meningococcal B Vaccine Aged Out No l onger eligible based on patient's age to complete this topic Pneumococcal Vaccine: Pediat rics (0 to 5 Years) and At-Risk Patients (6 to 49 Years) Aged Out No longer eligible b ased on patient's age to complete this topic RSV Immunization Patients Un francis 20 months Aged Out No longer eligible b ased on patient's age to complete this topic Varicella Vaccines Aged Out No longer eligible based on patient's age to complete this topic
--- OUTSIDE RECORDS SUMMARY | 2025-08-20 18:51 | XMS_ITS | Encounter Summary ---
Author Organization [employer] Address [address] [facility] [address] [place] [address] Care Team Providers Care Inspector Motor Vehicles Name Role Phone Irma Cage MD Primary [...] documented as of this encounter Care Teams Inspector Motor Vehicles Relationship Specialty Start Date End Date Irma Cage MD [address] [place] [phone] PCP - General Internal Medicine 09/05/24 documented as of this encounter
--- OUTSIDE RECORDS SUMMARY | 2025-08-20 18:51 | XMS_ITS | Encounter Summary ---
Author Organization [employer] Address [address] [facility] 7t [place] [address] Care Team Providers Care Package Dyeing Machine Operator Name Role Phone Irma Cage MD Primary Care Pro vider Encounter Details Date Type Department Care Team ([facility] st Contact Info) Description 03/21/2025 Orders Only [facility] MED & PEDS [address] [place] [address] ProviderShona MD Social History Tobacco Use Types [...] documented as of this encounter Care Teams Package Dyeing Machine Operator Relationship Specialty Start Date End Date Irma Cage MD [address] [place] [phone] PCP - General Internal Medicine 09/05/24 documented as of this encounter
== END 2025-08-20 17:58 | disposition home or self-care (01) ==
LOC: HO.HHCLNP 17:57
PROVIDERS: Visit Provider Nurse Practitioner Primary Care
DX: K21.9 Gastro-esophageal reflux disease without esophagitis (principal)
CPT/HCPCS: 87338

== ENCOUNTER 2025-10-12 10:07 | Outpatient (REF) | payer MEDICAID, SELFPAY ==
--- NOTE | ~2025-10-12 | US_ITS ---
CLINICAL HISTORY: periumbilical pain, pt sensation of mass, +diastasis recti on exam US abdomen limited Comparison: None Findings: Sonographic evaluation of the area of clinical concern supraumbilical region demonstrates a possible 1.5 cm supraumbilical ventral abdominal wall defect. Differentials include diastasis recti at this level. Noncontrast CT correlation is recommended. Impression: 1. Ventral abdominal wall defect versus diastasis recti supraumbilical area in the area of clinical concern. Noncontrast CT of the abdomen and pelvis is recommended This document has been electronically signed by: Payam Hines MD on 10/12/2025 12:45:02
--- OUTSIDE RECORDS SUMMARY | 2025-10-12 10:44 | XMS_ITS | Clinical Summary ---
Author Organization [facility] Address [address] [place] [address] Care Team Providers Care Dumper Mold Cleaner Name Role Phone Unavailable Primary Care Provider [...] Cervical Cancer Screening: P ap Smear 2016 HPV Vaccines (1 - 3-dose SCD M series) 2022 Depression Screening 11/22/2024 COVID-19 Vaccine (1 - 2024-2 6 season) 2025 Influenza Vaccine (#1) 2025 RSV [...]
== END 2025-10-12 10:08 | disposition home or self-care (01) ==
LOC: HO.HMGCX 10:07
PROVIDERS: PCP Family Medicine; Visit Provider Nurse Practitioner Primary Care
DX: R10.33 Periumbilical pain (principal)
CPT/HCPCS: 76705

== ENCOUNTER → 2025-10-12 10:26 | Outpatient (BNV) | payer MEDICAID, SELFPAY | PROVIDERS: PCP Family Medicine; Visit Provider Radiology Diagnostic Radiology | DX: R10.33 Periumbilical pain (principal) | CPT/HCPCS: 76705 ==